=== PATIENT | female | born 1940 | race Caucasian/White ===

== ENCOUNTER 2016-09-11 01:35 | Emergency (ER) | payer MEDICARE, BC ==
[~2016-09-11] VITALS: Ht 172.7 cm; Wt 90.0 kg
[~2016-09-11 01:35] MED LIST: ALIG4CAP; ARIM1TAB PO; CALC-179 PO; DORZSOL EACH EYE; FIORIC PO; FLUT50I; LANS30 PO; LATA.005%O EACH EYE; LOVA1TAB47 PO; MECL-62 PO; MEGA RED; METO25 PO; SOY50CAP PO; TRAM50 PO
[2016-09-11 01:43] VITALS: BP 146/81; PULSE 67; RESP 16; TEMP 97.8; O2SAT 99
[2016-09-11] MEDS ORDERED: [UNRECOGNIZED DRUG - CODE] (02:01)
[2016-09-11] MEDS ORDERED: CALC500T35 (02:01)
[2016-09-11] MEDS ORDERED: LATA0.002 EACH EYE (02:01)
[2016-09-11] MEDS ORDERED: BUTA1CAP PO (02:01)
[2016-09-11] MEDS ORDERED: LOVA20TA PO (02:01)
[2016-09-11] MEDS ORDERED: DORZ2SOL15 EACH EYE (02:01)
[2016-09-11] MEDS ORDERED: LANS30CA PO (02:01)
[2016-09-11] MEDS ORDERED: MECL-62 PO (02:01)
[2016-09-11] MEDS ORDERED: ANAS1TAB PO (02:01)
[2016-09-11] MEDS ORDERED: ALIG4CAP PO (02:02)
[2016-09-11] MEDS ORDERED: TRAM50TA PO (02:08)
[2016-09-11] MEDS ORDERED: PRED50 PO (02:44)
--- NOTE | 2016-09-11 02:46 | PD ---
HPI Chief Complaint: Musculoskeletal Complaint Time Seen by Provider: 02:35 Travel History International Travel<30 days: No Contact w/Intl Traveler<30days: No Traveled to known affect area: No History of Present Illness HPI The patient is a 76-year-old female that was getting ready for a trip to [place] and walking around more than she usually does and several hours ago, around 11 PM tonight she felt pain and some perceived swelling around Lisfranc' s joint and, to much lesser extent the ankle joint. It is very painful for her to bear weight on this left foot. She wants to drive to [place] with her in the next 2 days and wants to be better by then. PFSH Past Medical History Hx Anticoagulant Therapy: No Arthritis: Yes Autoimmune Disease: No Blood Disorders: No Cancer: Yes (Colon 1979) Cardiovascular Problems: Yes (htn on meds) High Cholesterol: Yes Chemotherapy: No Diminished Hearing: No Endocrine: No Gastrointestinal Disorders: Yes (Luci under care of Dr. Payne for GI issues) GERD: Yes Genitourinary: No Hypertension: Yes (HAS BEEN OFF MEDS FOR 6-7 MONTHS) Immune Disorder: No Implanted Vascular Access Dvce: No Neurologic: Yes Psychiatric: No Reproductive: No Respiratory: No Radiation Therapy: No ?: Not Menopausal: Yes Past Surgical History Abdominal Surgery: Yes (COLON SURGER FOR CA) Appendectomy: Yes Eye Surgery: Yes (CATARACTS) Genitourinary Surgery: Yes (Prolasped bladder) Neurologic Surgery: Yes (CEREBRAL ANEURISM 1999) Tonsillectomy: Yes Other Surgery: Yes (BLADDER SURGERY, NASAL POLYPS, VERICOSE VEIN SURG) Social History Alcohol Use: No Tobacco Use: No Substance Use: No Allergies-Medications (Allergen,Severity, Reaction): Coded Allergies: Codeine (Verified Allergy, Severe, 09/11/16) Meperidine (Verified Allergy, Severe, 09/11/16) Morphine (Verified Allergy, Severe, 09/11/16) Sulfa (Verified Allergy, Severe, 09/11/16) Demerol (Verified Allergy, Mild, 09/11/16) Zantac (Verified Adverse Reaction, Unknown, loose stools, 09/11/16) Reported Meds & Prescriptions Reported Meds & Active Scripts Active Reported Tramadol (Tramadol HCl) 50 Mg Tab 50 Mg PO Q6H PRN Align (Lactobacillus Rhamnosus (GG)) 4 Mg Cap 4 Mg PO DAILY Fioricet (Mxpplmpmqy-Azymnuavcmuex-Bsyqrhhs) 50-300-40 Mg Cap 1 Cap PO Q4H PRN Meclizine (Meclizine HCl) 25 Mg Tab 25 Mg PO DIRECTED PRN Dorzolamide-Timolol Opth Drops 22.3-6.8 Mg/Ml Soln 1 Drop EACH EYE BID Latanoprost Opth Drops (Latanoprost) 0.005% Drops 1 Drop EACH EYE HS Refrigerate until opened. Anastrozole 1 Mg Tab 1 Mg PO DAILY Lansoprazole 30 Mg Capdr 30 Mg PO DAILY Calcium (Oyster Shell) 500 Mg Tab Lovastatin 20 Mg Tab 20 Mg PO DAILY Soy Isoflavones (Soy Isoflavone) 40 Mg Tab Review of Systems Except as stated in HPI: all other systems reviewed are Neg Physical Exam Narrative GENERAL: Well-nourished, well-developed patient in slight apparent distress with her left foot pain. SKIN: Focused skin assessment warm/dry. HEAD: Normocephalic. EYES: No scleral icterus. No injection or drainage. NECK: Supple, trachea midline. No JVD or lymphadenopathy. CARDIOVASCULAR: Regular rate and rhythm without murmurs, gallops, or rubs. RESPIRATORY: Breath sounds equal bilaterally. No accessory muscle use. GASTROINTESTINAL: Abdomen soft, non-tender, nondistended. MUSCULOSKELETAL: No cyanosis, or edema. There is possibly some slight swelling over the left foot as compared to the right but there certainly is no pitting edema. She is tender all the way around Lisfranc's joint. She is not particularly tender in the plantar fascial area except for Lisfranc's joint. She does have some minimal tenderness around the left ankle joint. No erythema is seen. Movement of Lisfranc's joint completely reproduce the patient's pain. BACK: Nontender without obvious deformity. No CVA tenderness. Data Data Last Documented VS Vital Signs Date Time Temp Pulse Resp B/P Pulse Ox O2 Delivery O2 Flow Rate FiO2 09/11/16 01:43 97.8 67 16 146/81 99 MDM Medical Decision Making Medical Screen Exam Complete: Yes Emergency Medical Condition: Yes Medical Record Reviewed: Yes Differential Diagnosis Joint swelling/pain, arthritis pain, overuse joint pain Narrative Course The patient apparently has joint pain/swelling in Lisfranc's joint from overuse. Plan: The patient be put on prednisone over an 8 day tapered course. She should elevate her left foot above her heart and stay off her left foot as much as possible. Diagnosis Primary Impression: Swelling of foot joint Additional Impression: Overuse syndrome of foot Additional Instructions: As we discussed, the prednisone is taken one tablet twice daily for 4 days followed by one tablet once daily for 4 days. Elevate your left foot above your heart and stay off the foot as much as possible. Avoid weightbearing. Use your cane if necessary. Med/Other Pt SpecificInfo: Prescription(s) given Scripts Prednisone 50 Mg Tab50 Mg PO BID #12 TAB Ref 0 Prov:Teddy Ayala MD 09/11/16 Disposition: 01 DISCHARGE HOME Condition: Stable Teddy Ayala MD Sep 11, 2016 02:46
[2016-09-11] MEDS ORDERED: predniSONE 20 MG TAB PO ONE (03:00)
== END 2016-09-11 03:20 | disposition home or self-care (01) ==
LOC: PHED 01:35
DX: M70.872 Other soft tissue disorders related to use, overuse and pressure, left ankle and foot (principal); M25.572 Pain in left ankle and joints of left foot; Y93.01 Activity, walking, marching and hiking; I10 Essential (primary) hypertension
CPT/HCPCS: 99283; J7512

== ENCOUNTER 2017-11-12 14:08 | Emergency (ER) | payer MEDICARE, BC ==
[~2017-11-12] VITALS: Ht 172.7 cm; Wt 90.3 kg
[~2017-11-12 14:08] MED LIST changes: -ALIG4CAP; +ALIG4CAP PO; +ANAS1TAB PO; -ARIM1TAB PO; +BUTA1CAP PO; -CALC-179 PO; +CALC12502 PO; +DORZ2SOL15 EACH EYE; -DORZSOL EACH EYE; -FIORIC PO; -FLUT50I; -LANS30 PO; +LANS30CA PO; -LATA.005%O EACH EYE; +LATA0.002 EACH EYE; -LOVA1TAB47 PO; +LOVA20TA PO; -MEGA RED; -METO25 PO; +PRED50 PO; -SOY50CAP PO; -TRAM50 PO; +TRAM50TA PO; +[UNRECOGNIZED DRUG - CODE]
[2017-11-12 14:11] VITALS: BP 149/62; PULSE 71; RESP 16; TEMP 99.1; O2SAT 97
[2017-11-12] MEDS ORDERED: mega red PO (14:27)
[2017-11-12] MEDS ORDERED: ICAPCAP PO (14:27)
[2017-11-12] MEDS ORDERED: URIB118C PO (14:27)
[2017-11-12] MEDS ORDERED: SOYCAP PO (14:27)
[2017-11-12] MEDS ORDERED: NITR100C4 PO (14:27)
--- NOTE | 2017-11-12 15:15 | RADRPT ---
EXAM DATE: 11/12/2017 3:02 PM EDT AGE/SEX: 77 years / Female INDICATIONS: Right knee pain post gardening CLINICAL DATA: This is the patient's initial encounter. Patient reports that signs and symptoms have been present for 3 days and indicates a pain score of 5/10. MEDICAL/SURGICAL HISTORY: None. None. COMPARISON: No prior exams available for comparison. FINDINGS: There are minimal degenerative changes in the medial compartment. There is no evidence of joint effus ion. I was anatomic. Fracture is not appreciated. Moderate vascular calcic locations are noted. CONCLUSION: Mild degenerative changes otherwise negative Electronically signed by: Sen Wayne MD 11/12/2017 3:14 PM EDT
[2017-11-12] MEDS ORDERED: TRAM50 PO (15:41)
--- NOTE | 2017-11-12 15:45 | PD ---
HPI Chief Complaint: Musculoskeletal Complaint Time Seen by Provider: 14:33 Travel History International Travel<30 days: No Contact w/Intl Traveler<30days: No Traveled to known affect area: No History of Present Illness HPI 77-year-old female with right knee pain 1 day. She reports she developed sharp pain in the right knee when she attempted to stand up from a kneeling position. She now has pain with any flexion of the knee. Pain is localized to the anterior medial aspect. Pain is nonradiating. Symptom severity is moderate. Alleviated with rest and elevation. Denies altered sensation or weakness of the extremity. PFSH Past Medical History Hx Anticoagulant Therapy: No Arthritis: Yes Autoimmune Disease: No Blood Disorders: No Cancer: Yes (Colon 1979) Cardiovascular Problems: Yes (htn on meds) High Cholesterol: Yes Chemotherapy: No Diminished Hearing: No Endocrine: No Gastrointestinal Disorders: Yes (Luci under care of Dr. Payne for GI issues) GERD: Yes Genitourinary: No Hypertension: Yes (HAS BEEN OFF MEDS FOR 6-7 MONTHS) Immune Disorder: No Implanted Vascular Access Dvce: No Neurologic: Yes Psychiatric: No Reproductive: No Respiratory: No Radiation Therapy: No Tetanus Vaccination: < 5 Years Influenza Vaccination: Yes ?: Not Menopausal: Yes Past Surgical History Abdominal Surgery: Yes (COLON SURGER FOR CA) Appendectomy: Yes Eye Surgery: Yes (CATARACTS) Genitourinary Surgery: Yes (Prolasped bladder) Neurologic Surgery: Yes (CEREBRAL ANEURISM 1999) Tonsillectomy: Yes Other Surgery: Yes (BLADDER SURGERY, NASAL POLYPS, VERICOSE VEIN SURG) Social History Alcohol Use: No Tobacco Use: No Substance Use: No Allergies-Medications (Allergen,Severity, Reaction): Coded Allergies: Sulfa (Sulfonamide Antibiotics) (Unverified Allergy, Severe, 01/02/17) codeine (Unverified Allergy, Severe, 01/02/17) meperidine (Unverified Allergy, Severe, 01/02/17) morphine (Unverified Allergy, Severe, 01/02/17) ranitidine (Unverified Adverse Reaction, Unknown, loose stools, 01/02/17) Reported Meds & Prescriptions Reported Meds & Active Scripts Active Reported Nitrofurantoin Monohydrate Macrocrystals (Nitrofurantoin Monoh/Nitrofur Macro) 100 Mg Cap 100 Mg PO BID PRN Uribel (Itafkzhpewf-Ssxrv-Kvqvjjrus Blue) 1 Cap 118 Mg PO BID [robyn red] 300 Mg PO DAILY Icaps (Multiple Vitamins W/ Minerals) 1 Cap 1 Cap PO DAILY Soy Isoflavones (Soy Isoflavone) 100 Mg Cap 80 Mg PO DAILY Align (Lactobacillus Rhamnosus (GG)) 4 Mg Cap 4 Mg PO DAILY Fioricet (Uoqdwwwvuo-Cnkdzgjaxiaht-Qsonfhym) 50-300-40 Mg Cap 1 Cap PO Q4H PRN Meclizine (Meclizine HCl) 25 Mg Tab 25 Mg PO DIRECTED PRN Dorzolamide-Timolol Opth Drops 22.3-6.8 Mg/Ml Soln 1 Drop EACH EYE BID Latanoprost Opth Drops (Latanoprost) 0.005% Drops 1 Drop EACH EYE HS Refrigerate until opened. Anastrozole 1 Mg Tab 1 Mg PO DAILY Lansoprazole 30 Mg Capdr 30 Mg PO BID Calcium (Oyster Shell) 500 Mg Tab 600 Mg PO BID Lovastatin 20 Mg Tab 40 Mg PO HS Review of Systems Except as stated in HPI: all other systems reviewed are Neg General / Constitutional: No: Fever Eyes: No: Visual changes HENT: No: Headaches Cardiovascular: No: Chest Pain or Discomfort Respiratory: No: Shortness of Breath Gastrointestinal: No: Abdominal Pain Genitourinary: No: Dysuria Physical Exam Narrative GENERAL: Alert and well-appearing 77-year-old female SKIN: Warm and dry. HEAD: Normocephalic. EYES: No injection or drainage. NECK: Supple CARDIOVASCULAR: Regular rate and rhythm RESPIRATORY: Breath sounds equal bilaterally. No accessory muscle use. GASTROINTESTINAL: Abdomen soft, non-tender, nondistended. MUSCULOSKELETAL: No cyanosis, or edema. Right lower extremely: +ttp anterior medial aspect of the knee. Joint is stable. No laxity. Palpable distal pulses. Sensation intact. Cap refill intact Data Data Last Documented VS Vital Signs Date Time Temp Pulse Resp B/P (MAP) Pulse Ox O2 Delivery O2 Flow Rate FiO2 11/12/17 14:11 99.1 71 16 149/62 (91) 97 Orders Orders Knee, Complete (4vws) (11/12/17 ) ^ Knee Immobilizer (11/12/17 15:23) MDM Medical Decision Making Medical Screen Exam Complete: Yes Emergency Medical Condition: Yes Differential Diagnosis Sprain/strain, meniscal injury, fracture Narrative Course 77-year-old female with right knee pain is 1 day. Extremities neurovascularly intact. X-rays negative for fracture. Knee immobilizer placed. Patient is to follow-up with her orthopedist Dr. Avila this week. She reports she can take tramadol for pain. She will be given a few day supply. Diagnosis Primary Impression: Knee pain Qualified Codes: M25.561 - Pain in right knee Referrals: Orthopedist Primary Care Physician Additional Instructions: Knee immobilizer as directed. Pain medication as directed Call to schedule a follow-up appointment with Dr. Avila. Scripts Tramadol (Ultram) 50 Mg Tab 50 MG PO Q6H Y for PAIN, #10 TAB 0 Refills Prov: Pilar Mcgee 11/12/17 Disposition: 01 DISCHARGE HOME Condition: Stable Pilar Mcgee Nov 12, 2017 15:45
== END 2017-11-12 16:00 | disposition home or self-care (01) ==
LOC: PHEFT 14:08
DX: M25.561 Pain in right knee (principal); M19.90 Unspecified osteoarthritis, unspecified site; K21.9 Gastro-esophageal reflux disease without esophagitis; I10 Essential (primary) hypertension; Z88.2 Allergy status to sulfonamides; Z88.5 Allergy status to narcotic agent
CPT/HCPCS: 73564; 99283

== ENCOUNTER 2018-05-04 08:35 | Inpatient (IN) ==
[2018-05-04 09:32] LABS: Baso % (Auto) 0.6 % (0.0-2.0); Eos # (Auto) 0.1 th/mm3 (0.0-0.4); Eos % (Auto) 1.5 % (0.0-4.0); Hematocrit 44.8 % (35.0-46.0); Hemoglobin 15.1 gm/dL (11.6-15.3); Lymph # (Auto) 0.9 th/mm3 (1.0-4.8); Lymph % (Auto) 13.2 % (9.0-44.0); Mean Corpuscular HGB Conc 33.8 % (32.0-36.0); Mean Corpuscular Volume 91.6 fL (80.0-100.0); Mean Platelet Volume 10.1 fL (7.0-11.0); Mono # (Auto) 0.4 th/mm3 (0.0-0.9); Mono % (Auto) 5.7 % (0.0-8.0); Neut # (Auto) 5.6 th/mm3 (1.8-7.7); Platelet Count 164 th/mm3 (150-450); Red Blood Count 4.89 mil/mm3 (4.00-5.30); Red Cell Distribution Width 12.8 % (11.6-17.2)
--- NOTE | 2018-05-04 09:35 | ED ---
HPI General Chief complaint: Fall Stated complaint: Fall Time Seen by Provider: 05/04/18 08:45 Source: patient Mode of arrival: ambulatory Limitations: no limitations History of Present Illness HPI narrative: 77-year-old female who presents to the emergency department having had a mechanical fall when she was at a store. She tripped and landed on her right hip. She reports moderate severity pain in the right hip, constant , with no associated numbness or weakness. She did not hit her head. She is not on any blood thinners. Related Data Home Medications Medication Instructions Recorded Confirmed Bifidobacterium infantis [Align] 4 mg PO DAILY 05/04/18 05/04/18 anastrozole 1 mg PO DAILY 05/04/18 05/04/18 dorzolamide 1 drp OPHTHALMIC (EYE) TID 05/04/18 05/04/18 fluticasone 1 spray INTRANASAL DAILY 05/04/18 05/04/18 lansoprazole 30 mg PO DAILY 05/04/18 05/04/18 latanoprost 1 drp OPHTHALMIC (EYE) QPM 05/04/18 05/04/18 lovastatin 20 mg PO DAILY 05/04/18 05/04/18 meclizine 25 mg PO DAILY PRN 05/04/18 05/04/18 methalex-hector-s.edgp-pjvww-jvm 1 tab PO QID 05/04/18 05/04/18 [Uribel] metoprolol tartrate 12.5 mg PO BID 05/04/18 05/04/18 nitrofurantoin monohyd/m-cryst 100 mg PO BID 05/04/18 05/04/18 Allergies Allergy/AdvReac Type Severity Reaction Status Date / Time codeine Allergy Severe Vomiting Verified 05/04/18 09:05 morphine Allergy Severe Vomiting Verified 05/04/18 09:05 Sulfa (Sulfonamide Allergy Severe Diarrhea Verified 05/04/18 09:05 Antibiotics) meperidine [From Demerol] Allergy Nausea Verified 05/04/18 09:05 ranitidine AdvReac Unknown loose Verified 05/04/18 09:05 stools Review of Systems ROS: all other systems reviewed are negative PMFSH Medical History Medical History Bladder cancer (Acute) Breast cancer (Acute) Cataract (Acute) Colon cancer (Acute) Surgical History Surgical History History of appendectomy (Acute) Social History Social History Substance History: No History of Abuse Smoking Status: Never smoker How Often Do You Have a Drink Containing Alcohol: Never Recent Travel in [facility] within the Last 8 Weeks: No Recent Out of Country Travel within the Last 8 Weeks: Yes Immunization History Tetanus Immunization: <5 Years Exam Narrative Exam Narrative: GENERAL:Well appearing, no acute distress SKIN: Focused skin assessment warm and dry. HEAD: Atraumatic. Normocephalic. EYES: Pupils equal and round. No injection or drainage. ENT: Moist mucous membranes NECK: Trachea midline. CARDIOVASCULAR: Regular rate and rhythm. No murmur appreciated. 2+ right DP pulse with normal capillary refill. RESPIRATORY: Clear to auscultation. Breath sounds equal bilaterally. GASTROINTESTINAL: Abdomen soft, non-tender, nondistended. MUSCULOSKELETAL: Tender to palpation over the right pubic ramus, guarding with attempts at flexion of the right hip. NEUROLOGICAL: Awake and alert. No obvious cranial nerve deficits. Mild dysarthria. PSYCHIATRIC: Appropriate mood and affect; insight and judgment normal. Course Initial Documented Vital Signs Temperature 98.6 F 05/04/18 08:39 Pulse Rate 67 05/04/18 08:39 Respiratory Rate 16 05/04/18 08:39 Blood Pressure 191/92 H 05/04/18 08:39 Pulse Oximetry 97 05/04/18 08:39 Last Documented Vital Signs Temperature 98.6 F 05/04/18 08:39 Pulse Rate 67 05/04/18 08:39 Respiratory Rate 16 05/04/18 08:39 Blood Pressure 191/92 H 05/04/18 08:39 Pulse Oximetry 97 05/04/18 10:36 Medical Decision Making [facility] Narrative Medical decision making narrative: This is a 77-year-old female who presents to the emergency department having had a fall landing on her right hip. She has a normal neurovascular exam. X-ray demonstrates a femoral neck fracture in. Case was discussed with orthopedics who requested a CT of the hip and will likely do surgery tomorrow. Patient will be admitted to Dr. Sahu. Medical Screen Exam Complete: Yes Emergency Medical Condition: Yes Lab Data Result diagrams: 05/04/18 09:07 05/04/18 09:07 Lab Results 05/04/18 05/04/18 05/04/18 Range/Units 09:07 09:07 10:40 WBC 7.0 (4.0-11.0) th/mm3 RBC 4.89 (4.00-5.30) mil/mm3 Hgb 15.1 (11.6-15.3) gm/dL Hct 44.8 (35.0-46.0) % MCV 91.6 (80.0-100.0) fL MCH 31.0 (27.0-34.0) pg MCHC 33.8 (32.0-36.0) % RDW 12.8 (11.6-17.2) % Plt Count 164 (150-450) th/mm3 MPV 10.1 (7.0-11.0) fL Neut % (Auto) 79.0 H (16.0-70.0) % Lymph % (Auto) 13.2 (9.0-44.0) % Todd % (Auto) 5.7 (0.0-8.0) % Eos % (Auto) 1.5 (0.0-4.0) % Baso % (Auto) 0.6 (0.0-2.0) % Neut # (Auto) 5.6 (1.8-7.7) th/mm3 Lymph # (Auto) 0.9 L (1.0-4.8) th/mm3 Todd # (Auto) 0.4 (0.0-0.9) th/mm3 Eos # (Auto) 0.1 (0.0-0.4) th/mm3 Baso # (Auto) 0.0 (0.0-0.2) th/mm3 WBC Differential . Differential Comment Auto diff final Sodium 141 (136-145) meq/L Potassium 4.2 (3.5-5.1) meq/L Chloride 107 (98-107) meq/L Carbon Dioxide 27.6 (21.0-32.0) meq/L Anion Gap 6 (5-15) meq/L BUN 14 (7-18) mg/dL Creatinine 0.93 (0.50-1.00) mg/dL Estimated GFR 59 L (>89) mL/min Random Glucose 96 (74-106) mg/dL Calcium 9.0 (8.5-10.1) mg/dL Total Bilirubin 0.7 (0.2-1.0) mg/dL AST 33 (15-37) U/L ALT 32 (10-53) U/L Alkaline Phosphatase 114 (45-117) U/L Total Protein 7.5 (6.4-8.2) g/dL Albumin 4.2 (3.4-5.0) g/dL Urine Color Straw (Yellw/Straw) Urine Clarity Clear (Clear) Urine pH 7.0 (5.0-8.5) Ur Specific Crowder 1.006 (1.002-1.035) Urine Protein Negative (Neg-Trace) mg/dL Urine Glucose (UA) Negative (Negative) mg/dL Urine Ketones Negative (Negative) mg/dL Urine Occult Blood Negative (Negative) Urine Nitrate Negative (Negative) Urine Bilirubin Negative (Negative) Urine Urobilinogen Less than 2 (Less than 2) mg/dL Ur Leukocyte Esterase Trace H (Negative) Urine RBC 1 (0-3) /hpf Urine WBC 4 (0-5) /hpf Ur Squamous Epith Cells <1 (0-5) /hpf Urine Bacteria Rare H (None) /hpf Urine Mucus Few H (Occasional) /lpf Ur Microscopic Review Not Reportable Imaging Data Radiologist's impression: Hip X-Ray 05/04/18 09:01 CONCLUSION: Femoral neck fracture, nondisplaced. Pelvis X-Ray 05/04/18 09:01 CONCLUSION: Nondisplaced fracture of the right femoral neck. Discharge Plan Discharge Disposition Patient Disposition: ED Admit(ED Internal Use Only) Discharge Condition Condition: Stable Discharge Order Discharge Orders: ED Use Only Admit Order (Routine); Ordered 05/04/18 Ordered By: Nita Sin Discharge Details Diagnosis: Femoral neck fracture Physicians Team ED Provider: Nita Sin Primary Care Provider: Hillary Lu Attending Provider: Kiara Sahu Other Providers: Isacc Hightower Status ED Status: Admitted Patient
[2018-05-04 09:37] LABS: Alanine Aminotransferase 32 U/L (10-53)
[2018-05-04 09:40] LABS: Alkaline Phosphatase 114 U/L (45-117); Total Protein 7.5 g/dL (6.4-8.2)
[2018-05-04 09:45] LABS: Albumin 4.2 g/dL (3.4-5.0); Anion Gap 6 meq/L (5-15); Aspartate Aminotransferase 33 U/L (15-37); Blood Urea Nitrogen 14 mg/dL (7-18); Carbon Dioxide 27.6 meq/L (21.0-32.0); Chloride 107 meq/L (98-107); Glomerular Filtration Rate 59 mL/min (>89); Glucose,Random 96 mg/dL (74-106); Sodium 141 meq/L (136-145)
[2018-05-04 09:46] LABS: Potassium 4.2 meq/L (3.5-5.1)
--- NOTE | 2018-05-04 09:50 | XR ---
EXAM DATE: 05/04/2018 9:44 AM EST AGE/SEX: 77 years / Female INDICATIONS: Trauma. Fall. Possible femoral head fracture. CLINICAL DATA: This is the patient's initial encounter. Patient reports that signs and symptoms have been present for 1 day and indicates a pain score of 8/10. MEDICAL/SURGICAL HISTORY: None. None. COMPARISON: [facility] – [place], PELVIS AP 1V, 05/04/2018. . FINDINGS: Multiple views of the right hip demonstrate a nondisplaced femoral neck fracture. The bones are femi l in mineralization. Chain suture material overlies the midline pelvis. Radiopaque material overlies the region of the pub ic symphysis. CONCLUSION: Femoral neck fracture, nondisplaced. Electronically signed by: Mayte Andres MD Board Certified Radiologist 05/04/2018 9:49 AM [facility]
--- NOTE | 2018-05-04 09:51 | XR ---
EXAM DATE: 05/04/2018 9:45 AM EST AGE/SEX: 77 years / Female INDICATIONS: Trauma. Fall. Possible right femoral head fracture. CLINICAL DATA: This is the patient's initial encounter. Patient reports that signs and symptoms have been present for 1 day and indicates a pain score of 8/10. MEDICAL/SURGICAL HISTORY: None. None. COMPARISON: No prior exams available for comparison. FINDINGS: AP view of the pelvis demonstrates a nondisplaced fracture of the right femoral neck. Remainder of th e osseous structures are intact with degenerative changes within the lumbar spine. Bones are normal i n mineralization. Soft tissues demonstrate change suture material overlying the midline pelvis and radiopaque material overlying the region of the pubic symphysis. CONCLUSION: Nondisplaced fracture of the right femoral neck. Electronically signed by: Mayte Andres MD Board Certified Radiologist 05/04/2018 9:49 AM M[facility]
[2018-05-04] MEDS ORDERED: Bisacodyl 10 MG Supp RECTAL PRN (10:30)
[2018-05-04] MEDS ORDERED: Acetaminophen 325 MG Tablet PO PRN (10:30)
[2018-05-04] MEDS ORDERED: Morphine Inj 4 MG/ML Vial IV.PUSH PRN (10:35)
[2018-05-04] MEDS: Sod Chloride 0.9% Inj 1,000 ML IV.CONT SCH (10:53)
[2018-05-04 10:59] LABS: Bacteria,Urine Rare /hpf; Bilirubin,Urine Negative (Negative); Clarity,Urine Clear (Clear); Color,Urine Straw (Yellw/Straw); Glucose,Urine (UA) Negative (Negative); Leukocyte Esterase,Urine Trace (Negative); Mucus,Urine Few /lpf (Occasional); Nitrite,Urine Negative (Negative); Specific Gravity,Urine 1.006 (1.002-1.035); Squamous Epithelial Cell,Urine <1 /hpf (0-5)
--- NOTE | 2018-05-04 11:47 | CT ---
EXAM DATE: 05/04/2018 11:30 AM EST AGE/SEX: 77 years / Female INDICATIONS: Right hip pain status post fall. CLINICAL DATA: This is the patient's initial encounter. Patient reports that signs and symptoms have been present for 1 day and indicates a pain score of 6/10. MEDICAL/SURGICAL HISTORY: Carcinoma, bladder. Carcinoma, breast. Carcinoma, colon. Appendectomy. RADIATION DOSE: 23.72 CTDI (mGy) COMPARISON: [facility], MR PELVIS W AND W/O CONTRAST, 01/17/2018. [facility], HIP RIGHT 2V, 05/04/2018. . TECHNIQUE: Multiple contiguous axial images were acquired using a multirow detector CT scanner witho ut contrast. Multiplanar reconstruction was performed in the sagittal and coronal planes. Using aut omated exposure control and adjustment of the mA and/or kV according to patient size, radiation dose was kept as low as reasonably achievable to obtain optimal diagnostic quality images. DICOM format i mage data is available electronically for review and comparison. FINDINGS: Bones: There is a comminuted fracture of the right femoral neck with the femoral head maintaining no rmal alignment with the acetabulum and the proximal femur somewhat displaced anteriorly. The remainde r of the imaged osseous structures are intact. Joints: Severe degenerative changes of the facet joints. Soft Tissues: Unremarkable. Other: Linear mesh identified within the region of the urethra CONCLUSION: 1. Comminuted mildly displaced fracture of the right femoral neck. Electronically signed by: Mayte Andres MD Board Certified Radiologist 05/04/2018 11:45 AM E
--- NOTE | 2018-05-04 16:27 | P.HPIM ---
History of Present Illness Primary Care Physician: Hillary Lu MD Chief Complaint: fall History of Present Illness: The patient is a very pleasant 77-year-old female with carmita h/o colon/ breast CA, who presents to the emergency department having had a mechanical fall when she was at a store. She tripped and landed on her right hip. She reports moderate severity pain in the right hip, constant, with no associated numbness or weakness. She did not hit her head. She is not on any blood thinners. 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 She also has multiple meds allergies. Says however she was deemed healthy by all her doctors. Says she had a recent cardiac stress test and was normal. No other complaints. Deneis cp, sob, n/v/d/c. No headache change in vision, focal deficit. No urinary complaints. No n/v/d/c. Inpatient Certification: I certify that the inpatient services were ordered in accordance with Medicare regulations governing the order. This includes certification that hospital inpatient services are reasonable and necessary and in the case of services not specified as inpatient-only under 42 CFR 419.22(n), that they are appropriately provided as inpatient services in accordance to with the 2-midnight benchmark under 43 CFR 412.3(e) Estimated Total Length of Stay (Days): 3 Plans for Post Hospital Care: Not yet determined Review of Systems All other systems reviewed negative except as stated in HPI PMFSH - History History Provided By: Patient - Medical History Medical History: Medical History (Last Reviewed 05/04/18 @ 18:09 by Kiara Sahu MD) Bladder cancer Breast cancer Cataract Colon cancer - Surgical History Surgical History: Surgical History (Last Reviewed 05/04/18 @ 18:09 by Kiara Sahu MD) History of appendectomy - Family History Family History: Family History (Last Updated 05/04/18 @ 18:10 by Kiara Sahu MD) Father Family history of colon cancer Family history of cancer Mother Family history of cancer Family history of bone cancer Sister Family history of cancer - Social History I have reviewed the patient's Social History: Yes - Tobacco History Smoking Status: Never smoker - Alcohol History How Often Do You Have a Drink Containing Alcohol: Never - Substance Use History Substance History: No History of Abuse - Travel History Recent Travel in the [place] Within the Last 8 Weeks: No Recent Travel Out of the Country Within the Last 8 Weeks: Yes - Immunization History Tetanus Immunization: <5 Years Medications and Allergies Active Medications: Active Medications Acetaminophen (Tylenol) 650 mg PO Q4H PRN PRN Reason: Temp > 100.4 Al Hydroxide/Mg Hydroxide (Milk Of Magnesia Liq) 30 ml PO Q12H PRN PRN Reason: Mild Constipation Bisacodyl (Dulcolax Supp) 10 mg RECTAL DAILY PRN PRN Reason: SEVERE CONSITIPATION Dorzolamide HCl (Trusopt 2% Opth Drops) 1 drop EACH EYE TID [facility] Fluticasone Propionate (Flonase Nasal [place]) 1 spray EACH NARE DAILY [facility] Sodium Chloride (Ns Inj) 1,000 mls @ 70 mls/hr IV.CONT .[id number] [facility] Last Admin: 05/04/18 10:53 Dose: 70 mls/hr Lactulose (Lactulose Liq) 30 ml PO DAILY PRN PRN Reason: SEVERE CONSITIPATION Latanoprost (Xalatan 0.005% Opth Drops) 1 drop EACH EYE QPM [facility] Meclizine HCl (Antivert) 25 mg PO DAILY PRN PRN Reason: SEE LABEL COMMENTS Metoprolol Tartrate (Lopressor) 12.5 mg PO BID [facility] Nitrofurantoin Macrocrystals (Macrobid) 100 mg PO BID [facility] Ondansetron HCl (Zofran Inj) 4 mg IV.PUSH Q6H PRN PRN Reason: NAUSEA OR VOMITING Pantoprazole Sodium (Protonix) 40 mg PO DAILY [facility] Pt Own Med:(Methen-M .Blue-S.Phos-Phsal- Hyo [Uribel] 0 each PO QID [facility] Pravastatin Sodium (Pravachol) 20 mg PO DAILY [facility] Senna/Docusate Sodium (Ruby-Colace) 1 tab PO BID [facility] Sennosides (Senokot) 17.2 mg PO Q12H PRN PRN Reason: Moderate Constipation Sodium Chloride (Ns Flush) 2 ml IV.FLUSH BID [facility] Sodium Chloride (Ns Flush) 2 ml IV.FLUSH PRN PRN PRN Reason: FLUSH AFTER USING IV ACCESS Tramadol HCl (Ultram) 50 mg PO TID PRN PRN Reason: PAIN 2-10 Last Admin: 05/04/18 14:08 Dose: 50 mg Allergies Allergy/AdvReac Type Severity Reaction Status Date / Time codeine Allergy Severe Vomiting Verified 05/04/18 09:05 morphine Allergy Severe Vomiting Verified 05/04/18 09:05 Sulfa (Sulfonamide Allergy Severe Diarrhea Verified 05/04/18 09:05 Antibiotics) meperidine [From Demerol] Allergy Nausea Verified 05/04/18 09:05 ranitidine AdvReac Unknown loose Verified 05/04/18 09:05 stools Home Medications Medication Instructions Recorded Confirmed Type Bifidobacterium infantis [Align] 4 mg PO DAILY 05/04/18 05/04/18 History anastrozole 1 mg PO DAILY 05/04/18 05/04/18 History dorzolamide 1 drp OPHTHALMIC (EYE) TID 05/04/18 05/04/18 History fluticasone 1 spray INTRANASAL DAILY 05/04/18 05/04/18 History lansoprazole 30 mg PO DAILY 05/04/18 05/04/18 History latanoprost 1 drp OPHTHALMIC (EYE) QPM 05/04/18 05/04/18 History lovastatin 20 mg PO DAILY 05/04/18 05/04/18 History meclizine 25 mg PO DAILY PRN 05/04/18 05/04/18 History [id number] 1 tab PO QID 05/04/18 05/04/18 History [Uribel] metoprolol tartrate 12.5 mg PO BID 05/04/18 05/04/18 History nitrofurantoin monohyd/m-cryst 100 mg PO BID 05/04/18 05/04/18 History Exam Vital signs: Vital Signs 05/04/18 08:39 05/04/18 10:36 05/04/18 15:08 Temperature 98.6 F Pulse Rate 67 74 Respiratory Rate 16 16 Blood Pressure 191/92 H 160/69 H Pulse Oximetry 97 97 96 Intake & Output 05/03/18 05/04/18 05/04/18 18:59 06:59 18:59 Intake Total 100 / 100 Balance 100 / 100 Weight 91.172 kg Intake: IV 100 / 100 Ofirmev Inj 1,000 mg In 100 ml 100 / 100 @ 400 mls/hr IV.SIG ONCE ONE Rx #:[id number] Narrative: GENERAL: Very pleasant 77 yo female, well nourished, well developed, appears in nad. SKIN: Warm and dry. HEAD: Atraumatic. Normocephalic. EYES: Pupils equal and round. No scleral icterus. No injection or drainage. ENT: No nasal bleeding or discharge. Mucous membranes pink and moist. NECK: Trachea midline. No JVD. CARDIOVASCULAR: Regular rate and rhythm. RESPIRATORY: No accessory muscle use. Clear to auscultation. Breath sounds equal bilaterally. GASTROINTESTINAL: Abdomen soft, non-tender, nondistended. Hepatic and splenic margins not palpable. MUSCULOSKELETAL: Extremities without clubbing, cyanosis, or edema. Right leg is externally rotated. NEUROLOGICAL: Awake and alert. No obvious cranial nerve deficits. Motor grossly within normal limits. Five out of 5 muscle strength in the arms and legs. Normal speech. PSYCHIATRIC: Appropriate mood and affect; insight and judgment normal. Results - Labs CBC & Chem 7: 05/04/18 09:07 05/04/18 09:07 Labs: Short CBC 05/04/18 Range/Units 09:07 WBC 7.0 (4.0-11.0) th/mm3 Hgb 15.1 (11.6-15.3) gm/dL Hct 44.8 (35.0-46.0) % Plt Count 164 (150-450) th/mm3 BMP 05/04/18 09:07 Sodium 141 Potassium 4.2 Chloride 107 Carbon Dioxide 27.6 BUN 14 Creatinine 0.93 Calcium 9.0 Liver Function 05/04/18 Range/Units 09:07 Total Bilirubin 0.7 (0.2-1.0) mg/dL AST 33 (15-37) U/L ALT 32 (10-53) U/L Alkaline Phosphatase 114 (45-117) U/L Albumin 4.2 (3.4-5.0) g/dL Urine 05/04/18 Range/Units 10:40 Urine Color Straw (Yellw/Straw) Urine Clarity Clear (Clear) Urine pH 7.0 (5.0-8.5) Ur Specific [place] 1.006 (1.002-1.035) Urine Protein Negative (Neg-Trace) mg/dL Urine Glucose (UA) Negative (Negative) mg/dL - Imaging Impressions Hip X-Ray 05/04/18 09:01 CONCLUSION: Femoral neck fracture, nondisplaced. Pelvis X-Ray 05/04/18 09:01 CONCLUSION: Nondisplaced fracture of the right femoral neck. Hip CT 05/04/18 10:34 CONCLUSION: 1. Comminuted mildly displaced fracture of the right femoral neck. Caprini VTE Risk Assessment Caprini VTE Risk Assessment: No/Low Risk (score <= 1) Caprini Risk Assessment Model: Point Value = 1 Point Value = 2 Point Value = 3 Point Value = 5 Age 41-60 Minor surgery BMI > 25 kg/m2 Swollen legs Varicose veins or History of unexplained or recurrent spontaneous Oral contraceptives or hormone replacement Sepsis (< 1 month) Serious lung disease, including pneumonia (< 1 month) Abnormal pulmonary function Acute myocardial infarction Congestive heart failure (< 1 month) History of inflammatory bowel disease Medical patient at bed rest Age 61-74 Arthroscopic surgery Major open surgery (> 45 min) Laparoscopic surgery (> 45 min) Malignancy Confined to bed (> 72 hours) Immobilizing plaster cast Central venous access Age >= 75 History of VTE Family history of VTE Factor V Leiden Prothrombin [id number] Lupus anticoagulant Anticardiolipin antibodies Elevated serum homocysteine Heparin-induced thrombocytopenia Other congenital or acquired thrombophilia Stroke (< 1 month) Elective arthroplasty Hip, pelvis, or leg fracture Acute spinal cord injury (< 1 month) Prophylaxis Regimen: Total Risk Factor Score Risk Level Prophylaxis Regimen 0-1 Low Early ambulation 2 Moderate Order ONE of the following: *Sequential Compression Device (SCD) *Heparin 5000 units SQ BID 3-4 Higher Order ONE of the following medications: *Heparin 5000 units SQ TID *Enoxaparin/Lovenox 40 mg SQ daily (WT < 150 kg, CrCl > 30 mL/min) *Enoxaparin/Lovenox 30 mg SQ daily (WT < 150 kg, CrCl > 10-29 mL/min) *Enoxaparin/Lovenox 30 mg SQ BID (WT < 150 kg, CrCl > 30 mL/min) AND/OR *Sequential Compression Device (SCD) 5 or more Highest Order ONE of the following medications: *Heparin 5000 units SQ TID (Preferred with Epidurals) *Enoxaparin/Lovenox 40 mg SQ daily (WT < 150 kg, CrCl > 30 mL/min) *Enoxaparin/Lovenox 30 mg SQ daily (WT < 150 kg, CrCl > 10-29 mL/min) *Enoxaparin/Lovenox 30 mg SQ BID (WT < 150 kg, CrCl > 30 mL/min) AND *Sequential Compression Device (SCD) Assessment and Plan - Plan Very pleasant 77 yo female s/p mechanical fall S/P mechanical fall with right femoral neck closed fracture X ray reviewed and findings discussed with the ED physician and patient Ortho consulted,. Dr Crowe. Plan for surgery 05/05/18. NPO after midnight Chronic medical problems appears stable at this time Restart home meds as appropriate DVT ppx scd/teds. 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
[2018-05-04] MEDS ORDERED: [UNRECOGNIZED DRUG - OTHER] PO SCH (18:00)
[2018-05-04] MEDS: Dorzolamide 2% Opth Drops 10 ML Bottle EACH EYE SCH (18:18)
[2018-05-04] MEDS: Latanoprost 0.005% Opth Drops 2.5 ML Bottle EACH EYE SCH (18:18)
[2018-05-04] MEDS: Metoprolol Tartrate 25 MG Tablet PO SCH (21:34)
[2018-05-04] MEDS: Nitrofurantoin Monohydrate-Macrocrystal 100 MG Capsule PO SCH (21:34)
[2018-05-04] MEDS: Senna/Docusate Sodium 8.6/50 MG Tablet PO SCH (21:34)
[2018-05-05] MEDS: Sod Chloride 0.9% Inj 1,000 ML IV.CONT SCH ×2 (01:41→15:06)
[2018-05-05] MEDS ORDERED: Chlorhexidine Gluconate 2% 1 Pack (2 Cloths) TOPICAL ONE (04:23)
[2018-05-05] MEDS ORDERED: Sodium Chlor 0.9% Inj 500 ML IV.SIG SCH (05:00)
[2018-05-05 06:40] LABS: Baso # (Auto) 0.1 th/mm3 (0.0-0.2); Baso % (Auto) 0.8 % (0.0-2.0); Eos # (Auto) 0.3 th/mm3 (0.0-0.4); Eos % (Auto) 2.8 % (0.0-4.0); Hematocrit 40.5 % (35.0-46.0); Lymph # (Auto) 0.9 th/mm3 (1.0-4.8); Lymph % (Auto) 9.6 % (9.0-44.0); Mean Corpuscular HGB Conc 34.6 % (32.0-36.0); Mean Corpuscular Hemoglobin 31.7 pg (27.0-34.0); Mean Corpuscular Volume 91.7 fL (80.0-100.0); Mean Platelet Volume 9.7 fL (7.0-11.0); Mono # (Auto) 0.6 th/mm3 (0.0-0.9); Mono % (Auto) 6.4 % (0.0-8.0); Neut # (Auto) 7.3 th/mm3 (1.8-7.7); Neut % (Auto) 80.4 % (16.0-70.0); Platelet Count 128 th/mm3 (150-450); Red Blood Count 4.42 mil/mm3 (4.00-5.30); Red Cell Distribution Width 12.6 % (11.6-17.2)
--- NOTE | 2018-05-05 06:53 | P.CONOP ---
[facility] Orthopedics Consult Note - [facility] Consult date: 05/05/18 Chief complaint: Femoral neck fracture Narrative: Sally is a 77-year-old female. She is normally very active. She walks every day for exercise. Pain. She describes a mechanical fall. She denies dizziness , syncope, or loss of consciousness. She complains of right hip pain. Pain is severe and intense with motion. Pain is improved with rest. She denies any pre -existing hip pain prior to her fall. She does have a history of colon cancer and breast cancer. She presented to the emergency room where x-rays revealed a partially displaced right femoral neck fracture. She is currently awake and alert on the orthopedic floor. She has been unable to stand or ambulate since her fall. Review of Systems Patient denies fevers, chills, weight loss, headache, visual changes, hearing loss, chest pain, palpitations, shortness of breath, nausea, vomiting, no urinary changes, diarrhea, bowel changes, neck pain, back pain, skin rashes, weakness of extremities, easy bleeding, enlarged lymph nodes, numbness of extremities, anxiety, or depression. She complains of right hip pain. She states that she has a history of AV malformations. Patient's social history, past medical history, and family history were reviewed on chart and with patient. [facility] - History History Provided By: Patient - Medical History Medical History: Medical History (Last Reviewed 05/05/18 @ 06:51 by Isacc Hightower MD) Bladder cancer Breast cancer Cataract Colon cancer - Surgical History Surgical History: Surgical History (Last Reviewed 05/05/18 @ 06:51 by Isacc Hightower MD) History of appendectomy - Family History Family History: Family History (Last Reviewed 05/05/18 @ 06:51 by Isacc Hightower MD) Father Family history of colon cancer Family history of cancer Mother Family history of cancer Family history of bone cancer Sister Family history of cancer - Social History I have reviewed the patient's Social History: Yes - Tobacco History Second Hand Smoke Exposure: No Smoking Status: Never smoker - Alcohol History How Often Do You Have a Drink Containing Alcohol: Never - Substance Use History Substance History: No History of Abuse - Travel History Recent Travel in the [place] Within the Last 8 Weeks: No Recent Travel Out of the Country Within the Last 8 Weeks: Yes - Immunization History Tetanus Immunization: <5 Years Hx Influenza Vaccine This Season: No Medications and Allergies Active Medications: Active Medications Acetaminophen (Tylenol) 650 mg PO Q4H PRN PRN Reason: Temp > 100.4 Al Hydroxide/Mg Hydroxide (Milk Of Magnesia Liq) 30 ml PO Q12H PRN PRN Reason: Mild Constipation Bisacodyl (Dulcolax Supp) 10 mg RECTAL DAILY PRN PRN Reason: SEVERE CONSITIPATION Dorzolamide HCl (Trusopt 2% Opth Drops) 1 drop EACH EYE TID [facility] Last Admin: 05/04/18 18:18 Dose: Not Given Enalaprilat (Vasotec Inj) 1.25 mg IV.PUSH Q6H PRN PRN Reason: SBP>180, DBP>95 Last Admin: 05/05/18 06:14 Dose: 1.25 mg Fluticasone Propionate (Flonase Nasal [place]) 1 spray EACH NARE DAILY [facility] Last Admin: 05/04/18 18:17 Dose: Not Given Sodium Chloride (Ns Inj) 1,000 mls @ 70 mls/hr IV.CONT .[id number] [facility] Last Admin: 05/05/18 01:41 Dose: 70 mls/hr Lactated Ringer's (Lr 1000 Ml Inj) 1,000 mls @ 30 mls/hr IV.SIG .Q24H [facility] Stop: 18 04:29 Sodium Chloride (Ns Inj) 500 mls @ 30 mls/hr IV.SIG .Q10H [facility] Lactulose (Lactulose Liq) 30 ml PO DAILY PRN PRN Reason: SEVERE CONSITIPATION Latanoprost (Xalatan 0.005% Opth Drops) 1 drop EACH EYE QPM [facility] Last Admin: 05/04/18 18:18 Dose: Not Given Meclizine HCl (Antivert) 25 mg PO DAILY PRN PRN Reason: SEE LABEL COMMENTS Metoprolol Tartrate (Lopressor) 12.5 mg PO BID [facility] Last Admin: 05/04/18 21:34 Dose: 12.5 mg Nitrofurantoin Macrocrystals (Macrobid) 100 mg PO BID [facility] Last Admin: 05/04/18 21:34 Dose: 100 mg Ondansetron HCl (Zofran Inj) 4 mg IV.PUSH Q6H PRN PRN Reason: NAUSEA OR VOMITING Pantoprazole Sodium (Protonix) 40 mg PO DAILY [facility] Pt Own Med:(Christian Myers-S.Phos-Phsal- Hyo [Uribel] 0 each PO QID [facility] Pravastatin Sodium (Pravachol) 20 mg PO DAILY [facility] Senna/Docusate Sodium (Ruby-Colace) 1 tab PO BID [facility] Last Admin: 05/04/18 21:34 Dose: 1 tab Sennosides (Senokot) 17.2 mg PO Q12H PRN PRN Reason: Moderate Constipation Sodium Chloride (Ns Flush) 2 ml IV.FLUSH BID [facility] Last Admin: 05/04/18 21:34 Dose: 2 ml Sodium Chloride (Ns Flush) 2 ml IV.FLUSH PRN PRN PRN Reason: FLUSH AFTER USING IV ACCESS Last Admin: 05/05/18 06:14 Dose: 2 ml Tramadol HCl (Ultram) 50 mg PO TID PRN PRN Reason: PAIN 2-10 Last Admin: 05/05/18 04:55 Dose: 50 mg Allergies Allergy/AdvReac Type Severity Reaction Status Date / Time codeine Allergy Severe Vomiting Verified 05/04/18 09:05 morphine Allergy Severe Vomiting Verified 05/04/18 09:05 Sulfa (Sulfonamide Allergy Severe Diarrhea Verified 05/04/18 09:05 Antibiotics) meperidine [From Demerol] Allergy Nausea Verified 05/04/18 09:05 ranitidine AdvReac Unknown loose Verified 05/04/18 09:05 stools Home Medications Medication Instructions Recorded Confirmed Type Bifidobacterium infantis [Align] 4 mg PO DAILY 05/04/18 05/04/18 History anastrozole 1 mg PO DAILY 05/04/18 05/04/18 History dorzolamide 1 drp OPHTHALMIC (EYE) TID 05/04/18 05/04/18 History fluticasone 1 spray INTRANASAL DAILY 05/04/18 05/04/18 History lansoprazole 30 mg PO HS 05/04/18 05/04/18 History latanoprost 1 drp OPHTHALMIC (EYE) QPM 05/04/18 05/04/18 History lovastatin 20 mg PO DAILY 05/04/18 05/04/18 History meclizine 25 mg PO DAILY PRN 05/04/18 05/04/18 History marcellas.naiv-cfdoa-ahn 1 tab PO QID 05/04/18 05/04/18 History [Uribel] metoprolol tartrate 12.5 mg PO BID 05/04/18 05/04/18 History nitrofurantoin monohyd/m-cryst 100 mg PO BID 05/04/18 05/04/18 History Exam Vital signs: Vital Signs 05/04/18 08:39 05/04/18 10:36 05/04/18 15:08 Temperature 98.6 F Pulse Rate 67 74 Respiratory Rate 16 16 Blood Pressure 191/92 H 160/69 H Pulse Oximetry 97 97 96 05/04/18 16:00 05/04/18 20:10 05/05/18 00:07 Temperature 98.2 F 98.4 F 98.2 F Pulse Rate 73 75 66 Respiratory Rate 16 17 17 Blood Pressure 181/67 H 152/66 H 166/74 H Pulse Oximetry 93 L 95 93 L 05/05/18 04:34 05/05/18 05:54 05/05/18 06:13 Temperature 98.2 F Pulse Rate 71 Respiratory Rate 18 18 Blood Pressure 196/88 H 173/74 H Pulse Oximetry 94 L 05/05/18 06:24 Temperature 98.1 F Pulse Rate 70 Respiratory Rate 20 Blood Pressure 160/73 H Pulse Oximetry 94 L Intake & Output 05/04/18 05/04/18 05/05/18 06:59 18:59 06:59 Intake Total 700 / 700 1480 / 1480 Balance 700 / 700 1480 / 1480 Weight 91.172 kg 91.2 kg Intake: IV 100 / 100 1000 / 1000 NS Inj 1,000 ML @ 70 mls/hr IV. 1000 / 1000 CONT .[id number] [facility] Rx#:[id number] Ofirmev Inj 1,000 mg In 100 ml 100 / 100 @ 400 mls/hr IV.SIG ONCE ONE Rx #:[id number] Oral 600 / 600 480 / 480 Other: # Voids 3 5 Date of Last Bowel Movement 05/04/18 # Bowel Movements 0 Weight On Admission 91.172 kg Narrative: Sally is a pleasant 77-year-old female. General: Awake and alert. No acute distress. Appears well-developed well- nourished Head: Normocephalic, atraumatic pupils are equal Neck: Soft, nontender, trachea midline Abdomen: Soft, nondistended Examination of right arm reveals no pain or deformity with shoulder, elbow, or wrist motion. Skin is intact. Radial pulse is palpable. Normal capillary refill in fingers. Sensation is intact in radial, ulnar, and median nerve distributions. Combine Inspector strength is +5. No lymphadenopathy noted. Examination of left arm reveals no pain or deformity with shoulder, elbow, or wrist motion. Skin is intact. Radial pulse is palpable. Normal capillary refill in fingers. Sensation is intact in radial, ulnar, and median nerve distributions. Combine Inspector strength is +5. No lymphadenopathy noted. Examination of left lower extremity reveals no pain or deformity with hip, knee , or ankle motion. Skin is intact. Sensation is intact in left foot. Dorsalis pedis pulse is palpable. Normal capillary refill and feet. Thigh and calf compartments are soft. No lymphadenopathy noted. +5 strength of ankle dorsiflexion and plantarflexion. Examination of right lower extremity reveals pain with any hip motion. She has minimal tenderness around her knee or ankle.. Skin is intact. Sensation is intact in right foot. Dorsalis pedis pulse is palpable. Normal capillary refill and feet. Thigh and calf compartments are soft. No lymphadenopathy noted. +5 strength of ankle dorsiflexion and plantarflexion. Results - Labs Result Diagrams: 05/05/18 06:05 05/04/18 09:07 Labs: Laboratory Results - last 24 hr 05/04/18 05/04/18 05/04/18 09:07 09:07 10:40 WBC 7.0 RBC 4.89 Hgb 15.1 Hct 44.8 MCV 91.6 MCH 31.0 MCHC 33.8 RDW 12.8 Plt Count 164 MPV 10.1 Neut % (Auto) 79.0 H Lymph % (Auto) 13.2 [place] % (Auto) 5.7 Eos % (Auto) 1.5 Baso % (Auto) 0.6 Neut # (Auto) 5.6 Lymph # (Auto) 0.9 L [place] # (Auto) 0.4 Eos # (Auto) 0.1 Baso # (Auto) 0.0 WBC Differential . Differential Comment Auto diff final Sodium 141 Potassium 4.2 Chloride 107 Carbon Dioxide 27.6 Anion Gap 6 BUN 14 Creatinine 0.93 Estimated GFR 59 L Random Glucose 96 Calcium 9.0 Total Bilirubin 0.7 AST 33 ALT 32 Alkaline Phosphatase 114 Total Protein 7.5 Albumin 4.2 Urine Color Straw Urine Clarity Clear Urine pH 7.0 Ur Specific [place] 1.006 Urine Protein Negative Urine Glucose (UA) Negative Urine Ketones Negative Urine Occult Blood Negative Urine Nitrate Negative Urine Bilirubin Negative Urine Urobilinogen Less than 2 Ur Leukocyte Esterase Trace H Urine RBC 1 Urine WBC 4 Ur Squamous Epith Cells <1 Urine Bacteria Rare H Urine Mucus Few H Ur Microscopic Review Not Reportable 05/05/18 06:05 WBC 9.0 RBC 4.42 Hgb 14.0 Hct 40.5 MCV 91.7 MCH 31.7 MCHC 34.6 RDW 12.6 Plt Count 128 L MPV 9.7 Neut % (Auto) 80.4 H Lymph % (Auto) 9.6 [place] % (Auto) 6.4 Eos % (Auto) 2.8 Baso % (Auto) 0.8 Neut # (Auto) 7.3 Lymph # (Auto) 0.9 L [place] # (Auto) 0.6 Eos # (Auto) 0.3 Baso # (Auto) 0.1 WBC Differential . Differential Comment Auto diff final Sodium Potassium Chloride Carbon Dioxide Anion Gap BUN Creatinine Estimated GFR Random Glucose Calcium Total Bilirubin AST ALT Alkaline Phosphatase Total Protein Albumin Urine Color Urine Clarity Urine pH Ur Specific [place] Urine Protein Urine Glucose (UA) Urine Ketones Urine Occult Blood Urine Nitrate Urine Bilirubin Urine Urobilinogen Ur Leukocyte Esterase Urine RBC Urine WBC Ur Squamous Epith Cells Urine Bacteria Urine Mucus Ur Microscopic Review - Diagnostic results Imaging: Impressions Hip X-Ray 05/04/18 09:01 CONCLUSION: Femoral neck fracture, nondisplaced. Pelvis X-Ray 05/04/18 09:01 CONCLUSION: Nondisplaced fracture of the right femoral neck. Hip CT 05/04/18 10:34 CONCLUSION: 1. Comminuted mildly displaced fracture of the right femoral neck. Hip x-ray: report reviewed, image reviewed Assessment and Plan - Assessment and Plan Sally is a 37-year-old female. She had a fall resulting in right femoral neck fracture. Treatment options were discussed with patient including open reduction internal fixation, hemiarthroplasty, and total hip arthroplasty. She is very active and walks daily for exercise. She would like to maintain a very active lifestyle. After discussion of the risk and benefits of each of these potential procedures, she would like to proceed with total hip arthroplasty. All questions were answered. The risk and benefits of surgery were discussed in depth with patient. The risk of surgery include bleeding, infection, injuries to arteries, nerves, or blood vessels, infection, wound complications, leg length discrepancy, hip dislocation, trochanteric bursitis, painful hardware, and need for further surgery. I also discussed medical complications including blood clots, pneumonia, stroke, heart attack, and . Informed consent was obtained and all questions were answered. N.p.o.--plan on surgery this morning Calcium and vitamin D supplementation Physical therapy consult Follow-up with Dr. Hightower in 2 weeks Jaclyn, IRENE israel ASA A mid-level provider in my office (nurse practitioner or physician bookkeeper assistant) may see this patient on follow-up visits and continue to implement the objectives of this plan including: Starting or adjusting medications, injections , cast application, orthotics, brace application, physical therapy, radiological studies (including x-ray, MRI, CT, ultrasound, bone scan), vascular studies, neurologic studies, specialist consultation, and proceeding with surgical management, as appropriate.
[2018-05-05 07:01] LABS: Calcium 8.4 mg/dL (8.5-10.1); Carbon Dioxide 24.7 meq/L (21.0-32.0); Potassium 3.6 meq/L (3.5-5.1)
[2018-05-05] MEDS ORDERED: Bupivacaine Liposomal PF 1.3% Inj 20 ML Vial INFILTRATN ONE (07:20)
[2018-05-05] MEDS ORDERED: Tranexamic Acid Inj 1,400 MG in Sodium Chlor 0.9% Inj 100 ML IV.SIG ONE (07:20)
[2018-05-05] MEDS ORDERED: Sodium Chlor 0.9% Inj 40 ML, Bupivacaine Liposo PF 1.3% Inj 20 ML, Bupivacaine PF 0.25%... P-ARTICULR ONE ×3 (07:24)
[2018-05-05] MEDS ORDERED: ceFAZolin 1 GM Premix Inj 2 GM/100 ML PIGGYBACK IV.SIG ONE (07:25)
[2018-05-05] MEDS: Metoprolol Tartrate 25 MG Tablet PO SCH ×2 (09:00→21:57)
[2018-05-05] MEDS: Senna/Docusate Sodium 8.6/50 MG Tablet PO SCH ×2 (09:00→21:56)
[2018-05-05] MEDS: Dorzolamide 2% Opth Drops 10 ML Bottle EACH EYE SCH ×3 (09:00→17:44)
[2018-05-05] MEDS: Nitrofurantoin Monohydrate-Macrocrystal 100 MG Capsule PO SCH ×2 (09:00→21:54)
--- NOTE | 2018-05-05 09:45 | P.OP ---
- Preoperative Diagnosis (1) Displaced fracture of right femoral neck Date of procedure: 05/05/18 Procedure: Right total hip arthroplasty via anterior approach Anesthesia: GETA Surgeon: Isacc Hightower MD Automotive Glass Installer: LAWSON Jean PA-C The surgical procedure was assisted by my physician assistant finance director. My P.A. presence was necessary throughout this case for the manipulation and positioning of the surgical extremity. My P.A. was assisting me throughout the duration of this procedure. The skill set of a physician assistant finance director was medically necessary to complete this procedure. During the surgical case the surgical instrument maker was working at the back table and the physician assistant finance director was directly assisting me. Operation and Findings: PLAN OF ACTIVITY Weight bear as tolerated. IMPLANTS USED DePuy Corail size [14] collared stem with a size [50] Goldston Gription cup, [50 /32] Altrx poly liner, and a [32] metal head. DETAILS OF PROCEDURE: Sally had a fall yesterday resulting in right femoral neck fracture. Preoperatively I discussed with her treatment options including open reduction internal fixation, right hip hemiarthroplasty, and right total hip arthroplasty. She is very active and enjoys walking a lot. She would like to have the best possible functional outcome. After discussion of the risk and benefits of each procedure, she would like to proceed with total hip arthroplasty. Informed consent was confirmed. Operative site was marked. Patient was brought to OR and placed on OR table. IV sedation and general anesthesia was administered by anesthesiologist. Patient positioned on a Casie table and was given IV antibiotics. Time-out procedure was performed. The hip and thigh were prepped with alcohol followed by Hibiclens. The thigh was draped in the usual sterile fashion. Clean Air Suite was used for this procedure. The procedure began with a 5-inch incision over the anterolateral thigh. Subcutaneous tissue was dissected with Bovie. The fascia over the tensa fasciae latae was incised. Care was taken to avoid injury to the lateral femoral cutaneous nerve. The tensor muscle was retracted laterally. Sartorius was retracted medially. Retractors were now placed. The reflected head of the rectus is now elevated. A capsulotomy was performed over the anterior head capsule. Sutures were placed to help retract the capsule. At this point the femoral head and neck were identified. With soft tissue protected, oscillating saw was used to make a cut through the femoral neck, the femoral head was now removed. At this point attention was turned to preparation of the acetabulum. The labrum was excised. The acetabulum was sequentially reamed up to size [50]. A Goldston cup was now placed. Fluoroscopy was used to aid in identification of appropriate version. Cup was fully impacted and found to have excellent fit. Hole eliminator was now placed. The liner was now impacted into the cup. At this point the hip was externally rotated. A hook was placed around the proximal femur. The capsule was released off the lateral and medial femur. The hip was now extended and adducted. Retractors were placed around the proximal femur to allow for exposure. A box osteotome was used to remove the lateral cortex of the femoral neck. A broach was used to help lateralize the prosthesis. Canal finder was used to create a path down the canal. Next, the canal was sequentially broached up to size [14]. This was found to be an excellent fit. Calcar planer was placed. A standard head was placed, and the hip was reduced. The hip was found to have excellent stability with good range of motion. The leg lengths were measured under fluoroscopy and found to be equal compared to preoperatively. Trial broach was removed. The Corail stem was opened. Stem was fully impacted into the proximal femur in appropriate version. The femoral head was placed. The hip was again reduced. Fluoroscopy confirmed excellent alignment of prosthesis. The wound was thoroughly irrigated and capsule was closed with #1 Vicryl. The fascia over the tensor fasciae muscle was closed with #1 Vicryl, subcutaneous tissue was closed with 3-0 Vicryl and the skin was closed with jacky and Dermabond skin closure. The capsule layers, muscle, and subcutaneous tissue were injected with a mixture of saline and bupivicaine. Dressings were applied. The patient was transferred to Recovery Room in stable condition.
[2018-05-05] MEDS ORDERED: Morphine Inj 4 MG/ML Vial IV.PUSH PRN (09:49)
[2018-05-05] MEDS ORDERED: Post-op Orders (for Pharmacy) OTHER STA (09:49)
[2018-05-05] MEDS ORDERED: Promethazine 25 MG Supp RECTAL PRN (09:49)
[2018-05-05] MEDS ORDERED: fentaNYL Citrate Inj 100 MCG/2 ML Ampul ONE (10:10)
--- NOTE | 2018-05-05 10:37 | P.PN ---
Subjective Interval history: Was seen after surgery today. She is up in the chair. Says no pain at the surgical site. No n/v/d/c. No fever or chills. Physical Exam Vital signs: Vital Signs 05/04/18 10:36 05/04/18 15:08 05/04/18 16:00 Temperature 98.2 F Pulse Rate 74 73 Respiratory Rate 16 16 Blood Pressure 160/69 H 181/67 H Pulse Oximetry 97 96 93 L 05/04/18 20:10 05/05/18 00:07 05/05/18 04:34 Temperature 98.4 F 98.2 F 98.2 F Pulse Rate 75 66 71 Respiratory Rate 17 17 18 Blood Pressure 152/66 H 166/74 H 196/88 H Pulse Oximetry 95 93 L 94 L 05/05/18 05:54 05/05/18 06:13 05/05/18 06:24 Temperature 98.1 F Pulse Rate 70 Respiratory Rate 18 20 Blood Pressure 173/74 H 160/73 H Pulse Oximetry 94 L 05/05/18 10:04 05/05/18 10:15 Temperature 98 F Pulse Rate 66 65 Respiratory Rate 20 18 Blood Pressure 109/51 L 104/58 L Pulse Oximetry 94 L 97 Intake & Output 05/04/18 05/05/18 05/05/18 18:59 06:59 18:59 Intake Total 700 / 700 1480 / 1480 600 / 600 Output Total 200 / 200 Balance 700 / 700 1480 / 1480 400 / 400 Weight 91.172 kg 91.2 kg Intake: IV 100 / 100 1000 / 1000 NS Inj 1,000 ML @ 70 mls/hr IV. 1000 / 1000 CONT .[id number] [facility] Rx#:[id number] Ofirmev Inj 1,000 mg In 100 ml 100 / 100 @ 400 mls/hr IV.SIG ONCE ONE Rx #:[id number] Oral 600 / 600 480 / 480 Anesthesia Amount 600 / 600 Output: Estimated Blood Loss 200 / 200 Other: # Voids 3 5 Date of Last Bowel Movement 05/04/18 # Bowel Movements 0 Weight On Admission 91.172 kg Narrative: GENERAL: Very pleasant 77 yo female, well nourished, well developed, appears in nad. CARDIOVASCULAR: Regular rate and rhythm. RESPIRATORY: No accessory muscle use. Clear to auscultation. Breath sounds equal bilaterally. GASTROINTESTINAL: Abdomen soft, non-tender, nondistended. Hepatic and splenic margins not palpable. MUSCULOSKELETAL: Extremities without clubbing, cyanosis, or edema. Right hip s/ p surgery. Neurovascular intact. NEUROLOGICAL: Awake and alert. No obvious cranial nerve deficits. Motor grossly within normal limits. Normal speech. PSYCHIATRIC: Appropriate mood and affect; insight and judgment normal. Results - Labs CBC & Chem 7: 05/05/18 06:05 05/05/18 06:05 Laboratory Results - last 24 hr 05/04/18 05/05/18 05/05/18 10:40 06:05 06:05 WBC 9.0 RBC 4.42 Hgb 14.0 Hct 40.5 MCV 91.7 MCH 31.7 MCHC 34.6 RDW 12.6 Plt Count 128 L MPV 9.7 Neut % (Auto) 80.4 H Lymph % (Auto) 9.6 [place] % (Auto) 6.4 Eos % (Auto) 2.8 Baso % (Auto) 0.8 Neut # (Auto) 7.3 Lymph # (Auto) 0.9 L [place] # (Auto) 0.6 Eos # (Auto) 0.3 Baso # (Auto) 0.1 WBC Differential . Differential Comment Auto diff final Sodium 140 Potassium 3.6 Chloride 108 H Carbon Dioxide 24.7 Anion Gap 7 BUN 10 Creatinine 0.76 Estimated GFR 74 L Random Glucose 105 Calcium 8.4 L Urine Color Straw Urine Clarity Clear Urine pH 7.0 Ur Specific [place] 1.006 Urine Protein Negative Urine Glucose (UA) Negative Urine Ketones Negative Urine Occult Blood Negative Urine Nitrate Negative Urine Bilirubin Negative Urine Urobilinogen Less than 2 Ur Leukocyte Esterase Trace H Urine RBC 1 Urine WBC 4 Ur Squamous Epith Cells <1 Urine Bacteria Rare H Urine Mucus Few H Ur Microscopic Review Not Reportable - Imaging Impressions Hip CT 05/04/18 10:34 CONCLUSION: 1. Comminuted mildly displaced fracture of the right femoral neck. - Procedures s/p Right total hip arthroplasty via anterior approach 05/05/[address] Amrita moy. Assessment and Plan - Plan Very pleasant 77 yo female s/p mechanical fall S/P mechanical fall with right femoral neck closed fracture X ray reviewed as above Ortho consulted,. Dr Crowe. s/p Right total hip arthroplasty via anterior approach 05/05/[address] Amrita moy. Chronic medical problems appears stable at this time Restart home meds as appropriate DVT ppx scd/teds. 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
[2018-05-05] MEDS ORDERED: *Ondansetron Inj 4 MG/2 ML Vial PERIprocedural Use ONLY ONE (10:38)
--- NOTE | 2018-05-05 10:46 | XR ---
EXAM DATE: 05/05/2018 10:42 AM EST AGE/SEX: 77 years / Female INDICATIONS: Post operative, right hip replacement. CLINICAL DATA: This is the patient's initial encounter. Patient reports that signs and symptoms have been present for 1 day and indicates a pain score of Nonresponsive. MEDICAL/SURGICAL HISTORY: Non-responsive. Non-responsive. COMPARISON: [facility] [place], HIP RIGHT 2V, 05/04/2018. . FINDINGS: There has been interval total right hip arthroplasty. The persistence appears normal in orientation a djacent osseous structures are unremarkable. CONCLUSION: Status post total right hip arthroplasty with good anatomic alignment of the prosthesis. Electronically signed by: Mayte Andres MD Board Certified Radiologist 05/05/2018 10:44 AM Gus HASTINGS
[2018-05-05] MEDS ORDERED: Tranexamic Acid Inj 1,000 MG in Sodium Chlor 0.9% Inj 100 ML IV.SIG SCH (11:00)
--- NOTE | 2018-05-05 11:53 | ECG ---
Date Performed: 05/05/2018 Time Performed: 04:12:30 PTAGE: 77 years EKG: Sinus arrhythmia Lateral T wave changes are nonspecific Borderline ECG PREVIOUS TRACING :07/09/2012 @11.18 Compared to previous tracing, lateral T-wave changes are no w present. DOCTOR: Wilton Flynn Interpretating Date/Time 05/05/2018 11:52:04
[2018-05-05] MEDS: Calcium/Vitamin D 250/125 MG Tablet PO SCH ×2 (13:00→17:44)
--- NOTE | 2018-05-05 13:34 | XR ---
EXAM DATE: 05/05/2018 1:32 PM EST AGE/SEX: 77 years / Female INDICATIONS: Right anterior hip replacement. CLINICAL DATA: This is the patient's subsequent encounter. Patient reports that signs and symptoms h ave been present for 2 days and indicates a pain score of Nonresponsive. MEDICAL/SURGICAL HISTORY: None. Non-responsive. COMPARISON: [facility], HIP RIGHT W AP PELVIS 2V, 05/05/2018. . FINDINGS: Total hip arthroplasty is in place. The femoral and acetabular components appear intact. There are no signs of loosening or fracture. CONCLUSION: Intact total hip prosthesis for technique. Electronically signed by: Alexx Oquendo MD Board Certified Radiologist 05/05/2018 1:33 PM EST
[2018-05-05] MEDS: ceFAZolin 2 GM Premix Inj 2 GM/50 ML PIGGYBACK IV.SIG SCH (16:12)
[2018-05-05] MEDS: Latanoprost 0.005% Opth Drops 2.5 ML Bottle EACH EYE SCH (17:44)
[2018-05-05] MEDS: Vancomycin Inj 1,000 MG in Sodium Chlor 0.9% Inj 250 ML IV.SIG SCH (21:53)
[2018-05-05] MEDS: Celecoxib 200 MG Capsule PO SCH ×2 (21:54→23:05)
[2018-05-06] MEDS: ceFAZolin 2 GM Premix Inj 2 GM/50 ML PIGGYBACK IV.SIG SCH ×2 (01:00→09:05)
[2018-05-06 05:29] LABS: Hematocrit 34.9 % (35.0-46.0); Hemoglobin 11.9 gm/dL (11.6-15.3)
--- NOTE | 2018-05-06 06:38 | P.PNOP ---
Subjective Interval history: POD 1 s/p Right Anterior JULES doing well. states pain well controlled. reports out of bed and walking yesterday with minimal difficulty Physical Exam Vital signs: Vital Signs 05/05/18 10:04 05/05/18 10:15 05/05/18 10:30 Temperature 98 F 98 F Pulse Rate 66 65 61 Respiratory Rate 20 18 18 Blood Pressure 109/51 L 104/58 L 103/54 L Pulse Oximetry 94 L 97 97 05/05/18 12:00 05/05/18 13:47 05/05/18 16:00 Temperature 97.5 F L 97.6 F Pulse Rate 57 L 62 Respiratory Rate 16 16 Blood Pressure 98/51 L 103/50 L Pulse Oximetry 95 98 94 L 05/05/18 16:38 05/05/18 20:27 05/05/18 21:50 Temperature 98.1 F Pulse Rate 71 Respiratory Rate 16 16 Blood Pressure 138/62 Pulse Oximetry 96 93 L 05/05/18 21:58 05/05/18 23:05 05/06/18 00:31 Temperature 98.5 F Pulse Rate 74 Respiratory Rate 20 20 16 Blood Pressure 142/63 H Pulse Oximetry 93 L 05/06/18 05:29 Temperature 98.5 F Pulse Rate 79 Respiratory Rate 16 Blood Pressure 136/60 Pulse Oximetry 95 Intake & Output 05/05/18 05/05/18 05/06/18 06:59 18:59 06:59 Intake Total 1480 / 1480 2100 / 2100 1470 / 1470 Output Total 200 / 200 Balance 1480 / 1480 1900 / 1900 1470 / 1470 Weight 91.2 kg 93.6 kg Intake: IV 1000 / 1000 1050 / 1050 750 / 750 LR 1000 mL Inj 1,000 ML @ 80 700 / 700 mls/hr IV.CONT .[id number] [facility] Rx# :[id number] NS Inj 1,000 ML @ 70 mls/hr IV. 1000 / 1000 1000 / 1000 CONT .[id number] [facility] Rx#:[id number] Vancomycin Inj 1,000 MG In NS 0 / 0 Inj 250 ML @ 200 mls/hr IV.SIG Q12H [facility] Rx#:[id number] Ancef 2 GM Premix Inj 2 gm In 50 / 50 50 / 50 50 ml @ 100 mls/hr IV.SIG Q8H [facility] Rx#:[id number] Oral 480 / 480 450 / 450 720 / 720 Anesthesia Amount 600 / 600 Output: Estimated Blood Loss 200 / 200 Other: # Voids 5 4 4 Date of Last Bowel Movement 05/04/18 05/04/18 05/04/18 # Bowel Movements 0 0 Narrative: RLE: dressing clean and dry. intact. NVI. Results - Labs CBC & Chem 7: 05/06/18 04:43 05/05/18 06:05 Laboratory Results - last 24 hr 05/05/18 05/05/18 05/06/18 06:05 06:05 04:43 WBC 9.0 RBC 4.42 Hgb 14.0 11.9 D Hct 40.5 34.9 L MCV 91.7 MCH 31.7 MCHC 34.6 RDW 12.6 Plt Count 128 L MPV 9.7 Neut % (Auto) 80.4 H Lymph % (Auto) 9.6 [place] % (Auto) 6.4 Eos % (Auto) 2.8 Baso % (Auto) 0.8 Neut # (Auto) 7.3 Lymph # (Auto) 0.9 L [place] # (Auto) 0.6 Eos # (Auto) 0.3 Baso # (Auto) 0.1 WBC Differential . Differential Comment Auto diff final Sodium 140 Potassium 3.6 Chloride 108 H Carbon Dioxide 24.7 Anion Gap 7 BUN 10 Creatinine 0.76 Estimated GFR 74 L Random Glucose 105 Calcium 8.4 L - Imaging Impressions Hip X-Ray 05/05/18 00:00 CONCLUSION: Intact total hip prosthesis for technique. Hip X-Ray 05/05/18 09:51 CONCLUSION: Status post total right hip arthroplasty with good anatomic alignment of the prosthesis. - Procedures s/p Right total hip arthroplasty via anterior approach 05/05/[address] Crowe ortho. Assessment and Plan - Assessment and Plan 1) Right Femoral Neck Fx s/p Anterior JULES - POD 1 -WBAT -maintain surgical dressing x 6 days then progress to daily with primapore -work with therapy today -will plan for possible DC home tomorrow -home therapy to be arranged by our office nurse case management. no official C needed -patient unable to have any type of blood thinners due to hx of stroke. -f/u with Amrita or ELLIS in 2 weeks [facility] Prescription Drug Monitoring Database has been queried and verified prior to prescribing the controlled substance. Acute pain exception. This patient has normal, predicted, physiological, and time limited response to an adverse mechanical stimulus associated with surgery, trauma, or acute illness as described in my notes. There is a lack of alternative treatment options other than to include the prescribed narcotic treatment for this condition.
--- NOTE | 2018-05-06 08:55 | P.PN ---
Subjective Interval history: Randlett nauseated in the morning but did not bottle night. Was able to tolerate food. Since she was also dizzy when she started walking today with physical therapy. Feels better now. No nausea or vomiting no diarrhea constipation. Had a bowel movement in the morning. No fever or chills. Physical Exam Vital signs: Vital Signs 05/05/18 10:04 05/05/18 10:15 05/05/18 10:30 Temperature 98 F 98 F Pulse Rate 66 65 61 Respiratory Rate 20 18 18 Blood Pressure 109/51 L 104/58 L 103/54 L Pulse Oximetry 94 L 97 97 05/05/18 12:00 05/05/18 13:47 05/05/18 16:00 Temperature 97.5 F L 97.6 F Pulse Rate 57 L 62 Respiratory Rate 16 16 Blood Pressure 98/51 L 103/50 L Pulse Oximetry 95 98 94 L 05/05/18 16:38 05/05/18 20:27 05/05/18 21:50 Temperature 98.1 F Pulse Rate 71 Respiratory Rate 16 16 Blood Pressure 138/62 Pulse Oximetry 96 93 L 05/05/18 21:58 05/05/18 23:05 05/06/18 00:31 Temperature 98.5 F Pulse Rate 74 Respiratory Rate 20 20 16 Blood Pressure 142/63 H Pulse Oximetry 93 L 05/06/18 05:29 Temperature 98.5 F Pulse Rate 79 Respiratory Rate 16 Blood Pressure 136/60 Pulse Oximetry 95 Intake & Output 05/05/18 05/06/18 05/06/18 18:59 06:59 18:59 Intake Total 2100 / 2100 1470 / 1470 Output Total 200 / 200 Balance 1900 / 1900 1470 / 1470 Weight 93.6 kg Intake: IV 1050 / 1050 750 / 750 LR 1000 mL Inj 1,000 ML @ 80 700 / 700 mls/hr IV.CONT .[id number] [facility] Rx# :[id number] NS Inj 1,000 ML @ 70 mls/hr IV. 1000 / 1000 CONT .[id number] [facility] Rx#:[id number] Vancomycin Inj 1,000 MG In NS 0 / 0 Inj 250 ML @ 200 mls/hr IV.SIG Q12H [facility] Rx#:[id number] Ancef 2 GM Premix Inj 2 gm In 50 / 50 50 / 50 50 ml @ 100 mls/hr IV.SIG Q8H [facility] Rx#:[id number] Oral 450 / 450 720 / 720 Anesthesia Amount 600 / 600 Output: Estimated Blood Loss 200 / 200 Other: # Voids 4 4 Date of Last Bowel Movement 05/04/18 05/04/18 # Bowel Movements 0 Narrative: GENERAL: Very pleasant 77 yo female, well nourished, well developed, appears in nad. CARDIOVASCULAR: Regular rate and rhythm. RESPIRATORY: No accessory muscle use. Clear to auscultation. Breath sounds equal bilaterally. GASTROINTESTINAL: Abdomen soft, non-tender, nondistended. Hepatic and splenic margins not palpable. MUSCULOSKELETAL: Extremities without clubbing, cyanosis, or edema. Right hip s/ p surgery. Neurovascular intact. NEUROLOGICAL: Awake and alert. No obvious cranial nerve deficits. Motor grossly within normal limits. Normal speech. PSYCHIATRIC: Appropriate mood and affect; insight and judgment normal. Results - Labs CBC & Chem 7: 05/06/18 04:43 05/05/18 06:05 Laboratory Results - last 24 hr 05/06/18 04:43 Hgb 11.9 D Hct 34.9 L - Imaging Impressions Hip X-Ray 05/05/18 00:00 CONCLUSION: Intact total hip prosthesis for technique. Hip X-Ray 05/05/18 09:51 CONCLUSION: Status post total right hip arthroplasty with good anatomic alignment of the prosthesis. - Procedures s/p Right total hip arthroplasty via anterior approach 05/05/[address] Amrita moy. Assessment and Plan - Plan Very pleasant 77 yo female s/p mechanical fall S/P mechanical fall with right femoral neck closed fracture X ray reviewed as above Ortho consulted,. Dr Crowe. s/p Right total hip arthroplasty via anterior approach 05/05/[address] Amrita moy. Nausea: zofran as need Chronic medical problems appears stable at this time Restart home meds as appropriate DVT ppx scd/teds. 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 DC tomorrow
[2018-05-06] MEDS: Nitrofurantoin Monohydrate-Macrocrystal 100 MG Capsule PO SCH ×2 (08:56→21:55)
[2018-05-06] MEDS: Celecoxib 200 MG Capsule PO SCH ×2 (08:56→21:52)
--- NOTE | 2018-05-06 08:56 | P.DS ---
Date of admission: 05/04/18 10:48 Primary care physician: Hillary Lu MD Brief History from admission: The patient is a very pleasant 77-year-old female with carmita h/o colon/ breast CA, who presents to the emergency department having had a mechanical fall when she was at a store. She tripped and landed on her right hip. She reports moderate severity pain in the right hip, constant, with no associated numbness or weakness. She did not hit her head. She is not on any blood thinners. 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 She also has multiple meds allergies. Says however she was deemed healthy by all her doctors. Says she had a recent cardiac stress test and was normal. No other complaints. Deneis cp, sob, n/v/d/c. No headache change in vision, focal deficit. No urinary complaints. No n/v/d/c. DS: Diagnosis - Discharge Diagnosis (1) Displaced fracture of right femoral neck Status: Acute (2) Femoral neck fracture Status: Acute DS: Medications - Discharge Medications Prescriptions: cholecalciferol (vitamin D3) 5,000 unit PO DAILY #60 cap hydrocodone-acetaminophen [[place]] 1 tab PO Q4H #40 tab rivaroxaban [Xarelto] 10 mg PO DAILY #14 tab DS: Summary Hospital Course: Very pleasant 77 yo female s/p mechanical fall S/P mechanical fall with right femoral neck closed fracture X ray reviewed as above Ortho consulted,. Dr Crowe. s/p Right total hip arthroplasty via anterior approach 05/05/[address] Crowe ortho. Nausea: zofran as need Chronic medical problems appears stable at this time Improved, DC home in stable condition to follow up as OP with PCP and consultants - Time Spent with Patient Total time spent providing and/or coordinating discharge services: Greater than 30 minutes - Quality: VTE Deep Vein Thrombosis/Pulmonary Embolism Present on Admission: No Exam Vital signs: Vital Signs 05/05/18 10:04 05/05/18 10:15 05/05/18 10:30 Temperature 98 F 98 F Pulse Rate 66 65 61 Respiratory Rate 20 18 18 Blood Pressure 109/51 L 104/58 L 103/54 L Pulse Oximetry 94 L 97 97 05/05/18 12:00 05/05/18 13:47 05/05/18 16:00 Temperature 97.5 F L 97.6 F Pulse Rate 57 L 62 Respiratory Rate 16 16 Blood Pressure 98/51 L 103/50 L Pulse Oximetry 95 98 94 L 05/05/18 16:38 05/05/18 20:27 05/05/18 21:50 Temperature 98.1 F Pulse Rate 71 Respiratory Rate 16 16 Blood Pressure 138/62 Pulse Oximetry 96 93 L 05/05/18 21:58 05/05/18 23:05 05/06/18 00:31 Temperature 98.5 F Pulse Rate 74 Respiratory Rate 20 20 16 Blood Pressure 142/63 H Pulse Oximetry 93 L 05/06/18 05:29 Temperature 98.5 F Pulse Rate 79 Respiratory Rate 16 Blood Pressure 136/60 Pulse Oximetry 95 Intake & Output 05/05/18 05/06/18 05/06/18 18:59 06:59 18:59 Intake Total 2100 / 2100 1470 / 1470 Output Total 200 / 200 Balance 1900 / 1900 1470 / 1470 Weight 93.6 kg Intake: IV 1050 / 1050 750 / 750 LR 1000 mL Inj 1,000 ML @ 80 700 / 700 mls/hr IV.CONT .[id number] [facility] Rx# :[id number] NS Inj 1,000 ML @ 70 mls/hr IV. 1000 / 1000 CONT .[id number] [facility] Rx#:[id number] Vancomycin Inj 1,000 MG In NS 0 / 0 Inj 250 ML @ 200 mls/hr IV.SIG Q12H [facility] Rx#:[id number] Ancef 2 GM Premix Inj 2 gm In 50 / 50 50 / 50 50 ml @ 100 mls/hr IV.SIG Q8H [facility] Rx#:[id number] Oral 450 / 450 720 / 720 Anesthesia Amount 600 / 600 Output: Estimated Blood Loss 200 / 200 Other: # Voids 4 4 Date of Last Bowel Movement 05/04/18 05/04/18 # Bowel Movements 0 Narrative: GENERAL: Very pleasant 77 yo female, well nourished, well developed, appears in nad. CARDIOVASCULAR: Regular rate and rhythm. RESPIRATORY: No accessory muscle use. Clear to auscultation. Breath sounds equal bilaterally. GASTROINTESTINAL: Abdomen soft, non-tender, nondistended. Hepatic and splenic margins not palpable. MUSCULOSKELETAL: Extremities without clubbing, cyanosis, or edema. Right hip s/ p surgery. Neurovascular intact. NEUROLOGICAL: Awake and alert. No obvious cranial nerve deficits. Motor grossly within normal limits. Normal speech. PSYCHIATRIC: Appropriate mood and affect; insight and judgment normal. Results Procedures completed during hospitalization: s/p Right total hip arthroplasty via anterior approach 05/05/[address] Amrita moy. Labs on day of discharge: Labs from last 24 hours 05/06/18 04:43 Hgb 11.9 D Hct 34.9 L - Impressions ITS Impressions Pelvis X-Ray 05/04/18 09:01 CONCLUSION: Nondisplaced fracture of the right femoral neck. Hip CT 05/04/18 10:34 CONCLUSION: 1. Comminuted mildly displaced fracture of the right femoral neck. Hip X-Ray 05/05/18 09:51 CONCLUSION: Status post total right hip arthroplasty with good anatomic alignment of the prosthesis. Discharge Plan - Discharge Disposition Patient Disposition: Discharge Home - Discharge Condition Condition: Stable - Discharge Order Discharge Orders: Discharge Order (Routine); Ordered 05/07/18 Ordered By: Kiara Sahu Orthopedic Clear for Discharge (Routine); Ordered 05/07/18 Ordered By: Chace Gauthier - Discharge Details Anticipated Discharge Date: 05/07/18 - Physicians Team Primary Care Provider: Hillary Lu Attending Provider: Kiara Sahu Other Providers: Isacc Crowe MD
[2018-05-06] MEDS: Calcium/Vitamin D 250/125 MG Tablet PO SCH ×3 (08:58→17:53)
[2018-05-06] MEDS: Vancomycin Inj 1,000 MG in Sodium Chlor 0.9% Inj 250 ML IV.SIG SCH (08:59)
[2018-05-06] MEDS: Senna/Docusate Sodium 8.6/50 MG Tablet PO SCH ×2 (09:07→21:54)
[2018-05-06] MEDS: Metoprolol Tartrate 25 MG Tablet PO SCH ×2 (09:07→21:53)
[2018-05-06] MEDS: Dorzolamide 2% Opth Drops 10 ML Bottle EACH EYE SCH ×3 (14:33→17:53)
[2018-05-06] MEDS: Sod Chloride 0.9% Inj 1,000 ML IV.CONT SCH (14:33)
[2018-05-06] MEDS: Latanoprost 0.005% Opth Drops 2.5 ML Bottle EACH EYE SCH (17:53)
--- NOTE | 2018-05-07 06:51 | P.PNOP ---
Subjective Interval history: POD 2 s/p right anterior JULES states had issues ambulating yesterday. reports that when she got up she got really dizzy and had to sit down. reports that soreness from her fall is catching up with her. still interested in going home, but concerned about if she is ready yet. Physical Exam Vital signs: Vital Signs 05/06/18 08:20 05/06/18 09:25 05/06/18 11:11 Temperature 98.3 F Pulse Rate 77 Respiratory Rate 18 16 Blood Pressure 149/64 H Pulse Oximetry 96 96 05/06/18 12:14 05/06/18 15:59 05/06/18 20:05 Temperature 97.9 F 98.3 F 98.6 F Pulse Rate 76 76 82 Respiratory Rate 14 18 17 Blood Pressure 132/59 L 136/74 141/65 H Pulse Oximetry 96 94 L 92 L 05/07/18 00:25 05/07/18 04:50 Temperature 98.3 F 98.2 F Pulse Rate 82 85 Respiratory Rate 17 17 Blood Pressure 132/58 L 150/75 H Pulse Oximetry 92 L 96 Intake & Output 05/06/1818 05/07/18 06:59 18:59 06:59 Intake Total 1820 / 1820 400 / 400 1000 / 1000 Balance 1820 / 1820 400 / 400 1000 / 1000 Weight 93.6 kg 93.3 kg Intake: IV 1100 / 1100 400 / 400 100 / 100 LR 1000 mL Inj 1,000 ML @ 80 700 / 700 300 / 300 mls/hr IV.CONT .[id number] ROSA Rx# :[id number] Ofirmev Inj 1,000 mg In 100 ml 100 / 100 100 / 100 100 / 100 @ 400 mls/hr IV.SIG Q12H ROSA Rx #:[id number] Vancomycin Inj 1,000 MG In NS 250 / 250 Inj 250 ML @ 200 mls/hr IV.SIG Q12H ROSA Rx#:[id number] Ancef 2 GM Premix Inj 2 gm In 50 / 50 50 ml @ 100 mls/hr IV.SIG Q8H ROSA Rx#:[id number] Oral 720 / 720 900 / 900 Other: # Voids 4 4 Date of Last Bowel Movement 05/04/18 05/04/18 05/04/18 # Bowel Movements 0 0 Narrative: RLE: dressings clean and dry. intact. NVI Results - Labs CBC & Chem 7: 05/06/18 04:43 05/05/18 06:05 - Procedures s/p Right total hip arthroplasty via anterior approach 05/05/[address] Amrita moy. Assessment and Plan - Assessment and Plan 1) Right Femoral Neck Fx s/p Anterior JULES - POD 2 -WBAT -maintain surgical dressing x 6 days then progress to daily with primapore -work with therapy today. if doing well by this afternoon and dizziness has subsided, ok for DC home. -if still having issue, ok to keep til tomorrow and plan for DC then -home therapy to be arranged by our office caseworker. no official C needed -patient unable to have any type of blood thinners due to hx of stroke. -f/u with Amrita or [facility]LLIS in 2 weeks [facility] Prescription Drug Monitoring Database has been queried and verified prior to prescribing the controlled substance. Acute pain exception. This patient has normal, predicted, physiological, and time limited response to an adverse mechanical stimulus associated with surgery, trauma, or acute illness as described in my notes. There is a lack of alternative treatment options other than to include the prescribed narcotic treatment for this condition.
--- NOTE | 2018-05-07 08:54 | P.PNIM ---
Subjective Interval history: Patient is seen lying quietly in bed. She tells me that she had an episode of dizziness today while working with physical therapy. It has now resolved. Tells me it was almost more of a fainting feeling rather than a room spinning feeling. No history of vertigo or orthostatic hypotension. No headache or changes in vision. No chest pain or shortness of breath. No nausea vomiting or diarrhea. Physical Exam Vital signs: Last Vital Signs Temp 98.2 F 05/07/18 04:50 Pulse 85 05/07/18 04:50 Resp 17 05/07/18 04:50 BP 150/75 H 05/07/18 04:50 Pulse Ox 96 05/07/18 04:50 Intake & Output 05/05/18 05/06/18 05/07/18 05/08/18 06:59 06:59 06:59 06:59 Intake Total 2180 / 2180 3920 / 3920 1400 / 1400 Output Total 200 / 200 Balance 2180 / 2180 3720 / 3720 1400 / 1400 Weight 91.2 kg 93.6 kg 93.3 kg Narrative: GENERAL: Well-nourished, well-developed adult female in no obvious distress. SKIN: Warm and dry. HEAD: Atraumatic. Normocephalic. CARDIOVASCULAR: Regular rate and rhythm. RESPIRATORY: No accessory muscle use. Clear to auscultation. Breath sounds equal bilaterally. GASTROINTESTINAL: Abdomen soft, non-tender, non-distended. Positive bowel sounds. MUSCULOSKELETAL: Extremities without clubbing, cyanosis, or edema. No obvious deformities. Right hip dressing in place with no significant drainage. NEUROLOGICAL: Awake and alert. No obvious cranial nerve deficits. Motor grossly within normal limits. Normal speech. PSYCHIATRIC: Appropriate mood and affect; insight and judgment good. Results Labs CBC & Chem 7: 05/06/18 04:43 05/05/18 06:05 Procedures Procedures: s/p Right total hip arthroplasty via anterior approach 05/05/[address] Amrita moy. Assessment and Plan (1) Displaced fracture of right femoral neck: Code(s): S72.001A - Fracture of unspecified part of neck of right femur, initial encounter for closed fracture Status: Acute (2) Femoral neck fracture: Code(s): S72.009A - Fracture of unspecified part of neck of unspecified femur, initial encounter for closed fracture Status: Acute Plan Very pleasant 77 yo female s/p mechanical fall S/P mechanical fall with right femoral neck closed fracture s/p Right total hip arthroplasty via anterior approach 05/05/[address] Amrita moy. Nausea: zofran as need Dizziness: -Repeat CBC. -Noted to have T-100; some concern for infection -currently on Macrobid, continue. -Will order orthostatics if repeated. -Recent stress test normal per patient report. Chronic medical problems appears stable at this time Restart home meds as appropriate DVT ppx scd/teds. 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 DC : Sunday Progress Note: Quality VTE Deep Vein Thrombosis/Pulmonary Embolism Present on Admission: No _ (1) Femoral neck fracture Qualifiers: Encounter type: initial encounter Fracture healing: Fracture type: closed Laterality: right Open fracture type: Qualified Code(s): S72.001A - Fracture of unspecified part of neck of right femur, initial encounter for closed fracture
[2018-05-07] MEDS: Senna/Docusate Sodium 8.6/50 MG Tablet PO SCH ×2 (08:58→21:38)
[2018-05-07] MEDS: Calcium/Vitamin D 250/125 MG Tablet PO SCH ×3 (08:58→17:23)
[2018-05-07] MEDS: Celecoxib 200 MG Capsule PO SCH ×2 (08:59→21:39)
[2018-05-07] MEDS: Dorzolamide 2% Opth Drops 10 ML Bottle EACH EYE SCH ×3 (09:00→21:40)
[2018-05-07] MEDS: Metoprolol Tartrate 25 MG Tablet PO SCH ×2 (09:00→21:39)
[2018-05-07] MEDS: Nitrofurantoin Monohydrate-Macrocrystal 100 MG Capsule PO SCH ×2 (09:00→21:39)
[2018-05-07] MEDS: Sod Chloride 0.9% Inj 1,000 ML IV.CONT SCH (13:02)
[2018-05-07] MEDS: Latanoprost 0.005% Opth Drops 2.5 ML Bottle EACH EYE SCH (21:40)
[2018-05-08] MEDS: Sod Chloride 0.9% Inj 1,000 ML IV.CONT SCH ×2 (03:04→15:45)
[2018-05-08 05:38] LABS: Baso # (Auto) 0.1 th/mm3 (0.0-0.2); Baso % (Auto) 0.6 % (0.0-2.0); Eos # (Auto) 0.3 th/mm3 (0.0-0.4); Eos % (Auto) 3.5 % (0.0-4.0); Hematocrit 30.8 % (35.0-46.0); Hemoglobin 10.7 gm/dL (11.6-15.3); Lymph % (Auto) 11.6 % (9.0-44.0); Mean Corpuscular HGB Conc 34.7 % (32.0-36.0); Mean Corpuscular Hemoglobin 31.8 pg (27.0-34.0); Mean Corpuscular Volume 91.9 fL (80.0-100.0); Mean Platelet Volume 10.2 fL (7.0-11.0); Mono # (Auto) 0.9 th/mm3 (0.0-0.9); Mono % (Auto) 9.8 % (0.0-8.0); Neut # (Auto) 6.5 th/mm3 (1.8-7.7); Neut % (Auto) 74.5 % (16.0-70.0); Platelet Count 127 th/mm3 (150-450); Red Blood Count 3.36 mil/mm3 (4.00-5.30); Red Cell Distribution Width 13.2 % (11.6-17.2); White Blood Count 8.7 th/mm3 (4.0-11.0)
--- NOTE | 2018-05-08 06:48 | P.PNOP ---
Subjective Interval history: POD 3 s/p right JULES still repots issues with orthostatics and dizziness when standing. Physical Exam Vital signs: Vital Signs 05/07/18 08:21 05/07/18 12:45 05/07/18 15:45 Temperature 97.5 F L 98.8 F 100.0 F H Pulse Rate 85 78 87 Respiratory Rate 16 16 18 Blood Pressure 149/67 H 131/58 L 144/67 H Pulse Oximetry 96 94 L 95 05/07/18 18:07 05/07/18 20:15 05/08/18 00:15 Temperature 99.6 F 98.3 F 98.3 F Pulse Rate 84 81 Respiratory Rate 18 18 Blood Pressure 138/61 128/60 Pulse Oximetry 92 L 95 05/08/18 04:25 Temperature 98.6 F Pulse Rate 86 Respiratory Rate 17 Blood Pressure 128/60 Pulse Oximetry 92 L Intake & Output 05/07/18 05/07/18 05/08/18 06:59 18:59 06:59 Intake Total 1000 / 1000 960 / 960 720 / 720 Output Total 400 / 400 Balance 1000 / 1000 560 / 560 720 / 720 Weight 93.3 kg 93 kg Intake: IV 100 / 100 Ofirmev Inj 1,000 mg In 100 ml 100 / 100 @ 400 mls/hr IV.SIG Q12H ROSA Rx #:[id number] Oral 900 / 900 960 / 960 720 / 720 Output: Urine 400 / 400 Other: # Voids 4 5 3 Date of Last Bowel Movement 05/04/18 05/04/18 05/04/18 # Bowel Movements 0 0 Narrative: RLE: dressings clean and dry. itnact. NVI Results - Labs CBC & Chem 7: 05/08/18 04:55 05/05/18 06:05 Laboratory Results - last 24 hr 05/08/18 04:55 WBC 8.7 RBC 3.36 L Hgb 10.7 L Hct 30.8 L MCV 91.9 MCH 31.8 MCHC 34.7 RDW 13.2 Plt Count 127 L MPV 10.2 Neut % (Auto) 74.5 H Lymph % (Auto) 11.6 Lucas % (Auto) 9.8 H Eos % (Auto) 3.5 Baso % (Auto) 0.6 Neut # (Auto) 6.5 Lymph # (Auto) 1.0 Lucas # (Auto) 0.9 Eos # (Auto) 0.3 Baso # (Auto) 0.1 WBC Differential . Differential Comment Auto diff final - Procedures s/p Right total hip arthroplasty via anterior approach 05/05/[address] Amrita moy. Assessment and Plan - Assessment and Plan 1) Right Femoral Neck Fx s/p Anterior JULES - POD 3 -WBAT -maintain surgical dressing x 6 days then progress to daily with prim[place] -work with therapy today. if doing well by this afternoon and dizziness has subsided, ok for DC home. -if still having issue, ok to keep til tomorrow and plan for DC then -home therapy to be arranged by our office correctional case manager. no official C needed -patient unable to have any type of blood thinners due to hx of stroke. -f/u with Amrita or [facility] in 2 weeks [facility] Prescription Drug Monitoring Database has been queried and verified prior to prescribing the controlled substance. Acute pain exception. This patient has normal, predicted, physiological, and time limited response to an adverse mechanical stimulus associated with surgery, trauma, or acute illness as described in my notes. There is a lack of alternative treatment options other than to include the prescribed narcotic treatment for this condition.
[2018-05-08] MEDS: Senna/Docusate Sodium 8.6/50 MG Tablet PO SCH ×2 (08:22→20:33)
[2018-05-08] MEDS: Calcium/Vitamin D 250/125 MG Tablet PO SCH ×3 (08:22→17:35)
[2018-05-08] MEDS: Nitrofurantoin Monohydrate-Macrocrystal 100 MG Capsule PO SCH (08:25)
[2018-05-08] MEDS: Celecoxib 200 MG Capsule PO SCH ×2 (08:25→20:33)
[2018-05-08] MEDS: Metoprolol Tartrate 25 MG Tablet PO SCH ×2 (08:25→20:32)
[2018-05-08] MEDS: Dorzolamide 2% Opth Drops 10 ML Bottle EACH EYE SCH ×2 (08:26→20:36)
--- NOTE | 2018-05-08 12:05 | P.PNIM ---
Subjective Interval history: Patient is seen lying in bed. She is mildly upset that she once again became dizzy while trying to use the bedside commode. Describes the episode as more of a faint feeling rather than a room spinning feeling. She has had vertigo in the past and this was different. She is not having any chest pains, palpitations or shortness of breath. No associated nausea today other than immediately during the episode. Denies straining while on the bedside commode. Physical Exam Vital signs: Last Vital Signs Temp 98.2 F 05/08/18 08:00 Pulse 90 05/08/18 08:00 Resp 24 05/08/18 08:00 BP 171/73 H 05/08/18 08:00 Pulse Ox 94 L 05/08/18 08:00 Intake & Output 05/06/18 05/07/18 05/08/18 05/09/18 06:59 06:59 06:59 06:59 Intake Total 3920 / 3920 1400 / 1400 1680 / 1680 Output Total 200 / 200 400 / 400 Balance 3720 / 3720 1400 / 1400 1280 / 1280 Weight 93.6 kg 93.3 kg 93 kg Narrative: GENERAL: Well-nourished, well-developed adult female in no obvious distress. SKIN: Warm and dry. HEAD: Atraumatic. Normocephalic. CARDIOVASCULAR: Regular rate and rhythm. RESPIRATORY: No accessory muscle use. Clear to auscultation. Breath sounds equal bilaterally. GASTROINTESTINAL: Abdomen soft, non-tender, non-distended. Positive bowel sounds. MUSCULOSKELETAL: Extremities without clubbing, cyanosis, or edema. No obvious deformities. Right hip dressing in place with no significant drainage. NEUROLOGICAL: Awake and alert. No obvious cranial nerve deficits. Motor grossly within normal limits. Normal speech. PSYCHIATRIC: Appropriate mood and affect; insight and judgment good. Results Labs CBC & Chem 7: 05/08/18 04:55 05/05/18 06:05 Procedures Procedures: s/p Right total hip arthroplasty via anterior approach 05/05/[address] Amrita moy. Assessment and Plan (1) Displaced fracture of right femoral neck: Code(s): S72.001A - Fracture of unspecified part of neck of right femur, initial encounter for closed fracture Status: Acute (2) Femoral neck fracture: Code(s): S72.009A - Fracture of unspecified part of neck of unspecified femur, initial encounter for closed fracture Status: Acute Plan Very pleasant 77 yo female s/p mechanical fall S/P mechanical fall with right femoral neck closed fracture s/p Right total hip arthroplasty via anterior approach 05/05/[address] Amrita moy. Nausea: -zofran as need Dizziness: -Repeated CBC -normal white count; stable hemoglobin -Noted to have T-100 on 05/07; some concern for infection -currently on Macrobid , continue. Now afebrile -Orthostatics ordered; keep teds on; encourage PO fluids -Recent stress test normal per patient report. -Possibly related to pain medications, try to wean Chronic medical problems appears stable at this time Restart home meds as appropriate DVT ppx scd/teds. 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 Refuses ASA ordered by Arlene Mckinnon. DC : Likely to rehab as soon as stable. Progress Note: Quality VTE Deep Vein Thrombosis/Pulmonary Embolism Present on Admission: No _ (1) Femoral neck fracture Qualifiers: Encounter type: initial encounter Fracture healing: Fracture type: closed Laterality: right Open fracture type: Qualified Code(s): S72.001A - Fracture of unspecified part of neck of right femur, initial encounter for closed fracture
[2018-05-08] MEDS: Latanoprost 0.005% Opth Drops 2.5 ML Bottle EACH EYE SCH (20:36)
--- NOTE | 2018-05-09 06:43 | P.PNOP ---
Subjective Interval history: POd 4 s/p right JULES continues to struggle with orthostatics, although better yesterday Physical Exam Vital signs: Vital Signs 05/08/18 08:00 05/08/18 12:00 05/08/18 16:00 Temperature 98.2 F 98.6 F 99.9 F H Pulse Rate 90 84 87 Respiratory Rate 24 20 20 Blood Pressure 171/73 H 124/62 146/62 H Pulse Oximetry 94 L 97 94 L 05/08/18 20:20 05/09/18 00:46 05/09/18 04:52 Temperature 99.2 F 98 F 97.6 F Pulse Rate 86 60 72 Respiratory Rate 18 18 18 Blood Pressure 142/62 H 125/63 121/67 Pulse Oximetry 97 95 94 L Intake & Output 05/08/18 05/08/18 05/09/18 06:59 18:59 06:59 Intake Total 720 / 720 120 / 120 Balance 720 / 720 120 / 120 Weight 93 kg 93.8 kg Intake: Oral 720 / 720 120 / 120 Other: # Voids 3 3 Date of Last Bowel Movement 05/04/18 05/05/18 05/08/18 # Bowel Movements 0 2 Narrative: RLE: dressing clean and dry. itnact. nvi Results - Labs CBC & Chem 7: 05/08/18 04:55 05/05/18 06:05 - Procedures s/p Right total hip arthroplasty via anterior approach 05/05/[address] Crowe ortho. Assessment and Plan - Assessment and Plan 1) Right Femoral Neck Fx s/p Anterior JULES - POD 4 -WBAT -maintain surgical dressing x 6 days then progress to daily with prim[place] -work with therapy today. if doing well by this afternoon and dizziness has subsided, ok for DC home. -if still having issue with orthostatics, may be candidate for Rehab placement. -CM to look into options -home therapy to be arranged by our office block and case maker. no official HHC needed -patient unable to have any type of blood thinners due to hx of stroke. -f/u with Amrita or [facility] in 2 weeks [facility] Prescription Drug Monitoring Database has been queried and verified prior to prescribing the controlled substance. Acute pain exception. This patient has normal, predicted, physiological, and time limited response to an adverse mechanical stimulus associated with surgery, trauma, or acute illness as described in my notes. There is a lack of alternative treatment options other than to include the prescribed narcotic treatment for this condition.
[2018-05-09] MEDS: Senna/Docusate Sodium 8.6/50 MG Tablet PO SCH (08:39)
[2018-05-09] MEDS: Metoprolol Tartrate 25 MG Tablet PO SCH (08:39)
[2018-05-09] MEDS: Calcium/Vitamin D 250/125 MG Tablet PO SCH (08:39)
[2018-05-09] MEDS: Celecoxib 200 MG Capsule PO SCH (08:39)
[2018-05-09] MEDS: Dorzolamide 2% Opth Drops 10 ML Bottle EACH EYE SCH (08:42)
[2018-05-09 09:18] VITALS: RESP 17
[2018-05-09 12:22] VITALS: BP 127/69; PULSE 80; TEMP 98; O2SAT 97
--- NOTE | 2018-05-09 12:45 | P.PNIM ---
Subjective Interval history: Patient is seen sitting up in chair. is at bedside. Patient tells me that she has not had any episodes of dizziness today. She has been up ambulating in her room and going to the bathroom without difficulty. Would very much like to go home today. Pain has been well controlled with tramadol. No chest pain or shortness of breath. No nausea vomiting or diarrhea. No fever or chills. Physical Exam Vital signs: Last Vital Signs Temp 98 F 05/09/18 12:00 Pulse 80 05/09/18 12:00 Resp 17 05/09/18 12:00 BP 127/69 05/09/18 12:00 Pulse Ox 97 05/09/18 12:00 Intake & Output 05/07/18 05/08/18 05/09/18 05/10/18 06:59 06:59 06:59 06:59 Intake Total 1400 / 1400 1680 / 1680 120 / 120 Output Total 400 / 400 Balance 1400 / 1400 1280 / 1280 120 / 120 Weight 93.3 kg 93 kg 93.8 kg Narrative: GENERAL: Well-nourished, well-developed adult female in no obvious distress. SKIN: Warm and dry. HEAD: Atraumatic. Normocephalic. CARDIOVASCULAR: Regular rate and rhythm. RESPIRATORY: No accessory muscle use. Clear to auscultation. Breath sounds equal bilaterally. GASTROINTESTINAL: Abdomen soft, non-tender, non-distended. Positive bowel sounds. MUSCULOSKELETAL: Extremities without clubbing, cyanosis, or edema. No obvious deformities. Right hip dressing in place with no significant drainage. NEUROLOGICAL: Awake and alert. No obvious cranial nerve deficits. Motor grossly within normal limits. Normal speech. PSYCHIATRIC: Appropriate mood and affect; insight and judgment good. Results Labs CBC & Chem 7: 05/08/18 04:55 05/05/18 06:05 Procedures Procedures: s/p Right total hip arthroplasty via anterior approach 05/05/[address] Amrita moy. Assessment and Plan (1) Displaced fracture of right femoral neck: Code(s): S72.001A - Fracture of unspecified part of neck of right femur, initial encounter for closed fracture Status: Acute (2) Femoral neck fracture: Code(s): S72.009A - Fracture of unspecified part of neck of unspecified femur, initial encounter for closed fracture Status: Acute Plan Very pleasant 77 yo female s/p mechanical fall S/P mechanical fall with right femoral neck closed fracture s/p Right total hip arthroplasty via anterior approach 05/05/[address] Amrita moy. Nausea: Resolved -zofran as need Dizziness: Resolved -Repeated CBC -normal white count; stable hemoglobin -Noted to have T-100 on 05/07; some concern for infection -currently on Macrobid , continue. Now afebrile -Orthostatics ordered; keep teds on; encourage PO fluids -Recent stress test normal per patient report. -Possibly related to pain medications, try to wean Chronic medical problems appears stable at this time Restart home meds as appropriate DVT ppx scd/teds. 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 Refuses ASA ordered by Arlene Mckinnon. DC : Home with home health today Progress Note: Quality VTE Deep Vein Thrombosis/Pulmonary Embolism Present on Admission: No _ (1) Femoral neck fracture Qualifiers: Encounter type: initial encounter Fracture healing: Fracture type: closed Laterality: right Open fracture type: Qualified Code(s): S72.001A - Fracture of unspecified part of neck of right femur, initial encounter for closed fracture
--- NOTE | 2018-05-09 12:53 | P.DS ---
DS: Providers Date of admission: 05/04/18 10:48 Primary care physician: Hillary Lu MD Consults: 05/04/18 10:39 Consult to Orthopedic Surgery Routine Consulting Provider: Isacc Hightower Flatbed Owner Operator:: Isacc Hightower Reason for Consultation: femoral neck fracture, discussed with physician culinary assistant Mitchel Notified:: Service Spoke with:: saw Date Notified:: 05/04/18 Time Notified:: 10:53 Ordering Provider: PARVIN 05/08/18 15:08 HUB Only Consult Order Routine [facility] Brief History from admission: The patient is a very pleasant 77-year-old female with carmita h/o colon/ breast CA, who presents to the emergency department having had a mechanical fall when she was at a store. She tripped and landed on her right hip. She reports moderate severity pain in the right hip, constant, with no associated numbness or weakness. She did not hit her head. She is not on any blood thinners. 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 She also has multiple meds allergies. Says however she was deemed healthy by all her doctors. Says she had a recent cardiac stress test and was normal. No other complaints. Deneis cp, sob, n/v/d/c. No headache change in vision, focal deficit. No urinary complaints. No n/v/d/c. DS: Diagnosis Discharge Diagnosis (1) Displaced fracture of right femoral neck: Status: Acute (2) Femoral neck fracture: Status: Acute DS: Summary S/P mechanical fall with right femoral neck closed fracture s/p Right total hip arthroplasty via anterior approach 05/05/[address] Amrita moy. -Managed by ortho Nausea: Resolved Dizziness: Resolved -Repeated CBC -normal white count; stable hemoglobin -Noted to have T-100 on 05/07; Now afebrile -Orthostatics ordered; keep teds on; encourage PO fluids -Recent stress test normal per patient report. -Possibly related to pain medications, limit as much as possible Chronic medical problems were stable during hospitalization. Home meds given as appropriate Time Spent with Patient Total time spent providing and/or coordinating discharge services:<30 min Quality: VTE Deep Vein Thrombosis/Pulmonary Embolism Present on Admission: No Exam Narrative Exam Narrative: GENERAL: Well-nourished, well-developed adult female in no obvious distress. SKIN: Warm and dry. HEAD: Atraumatic. Normocephalic. CARDIOVASCULAR: Regular rate and rhythm. RESPIRATORY: No accessory muscle use. Clear to auscultation. Breath sounds equal bilaterally. GASTROINTESTINAL: Abdomen soft, non-tender, non-distended. Positive bowel sounds. MUSCULOSKELETAL: Extremities without clubbing, cyanosis, or edema. No obvious deformities. Right hip dressing in place with no significant drainage. NEUROLOGICAL: Awake and alert. No obvious cranial nerve deficits. Motor grossly within normal limits. Normal speech. PSYCHIATRIC: Appropriate mood and affect; insight and judgment good. Results Procedures completed during hospitalization: s/p Right total hip arthroplasty via anterior approach 05/05/[address] Amrita moy. Impressions ITS Impressions Pelvis X-Ray 05/04/18 09:01 CONCLUSION: Nondisplaced fracture of the right femoral neck. Hip CT 05/04/18 10:34 CONCLUSION: 1. Comminuted mildly displaced fracture of the right femoral neck. Hip X-Ray 05/05/18 09:51 CONCLUSION: Status post total right hip arthroplasty with good anatomic alignment of the prosthesis. Discharge Plan Discharge Disposition Patient Disposition: Discharge Home Discharge Condition Condition: Stable Discharge Order Discharge Orders: Discharge Order (Routine); Ordered 05/07/18 Ordered By: Kiara Sahu Orthopedic Clear for Discharge (Routine); Ordered 05/07/18 Ordered By: Chace Gauthier ED Use Only Admit Order (Routine); Ordered 05/04/18 Ordered By: Nita Sin Discharge Details Anticipated Discharge Date: 05/09/18 Physicians Team ED Provider: Nita Sin Primary Care Provider: Hillary Lu Attending Provider: Kiara Sahu Other Providers: Isacc Hightower ; [facility] Rxs /Orders / Referrals /Forms Prescriptions: New rivaroxaban [Xarelto] 10 mg Tablet 10 mg PO DAILY Qty: 14 RF: 0 cholecalciferol (vitamin D3) 5,000 unit Capsule 5,000 unit PO DAILY Qty: 60 RF: 0 tramadol [Ultram] 50 mg Tablet 50 mg PO Q8H PRN (Reason: Pain Scale 1 To 2) Qty: 9 RF: 0 Continue latanoprost 0.005 % Drops 1 drp OPHTHALMIC (EYE) QPM RF: 0 anastrozole 1 mg Tablet 1 mg PO DAILY RF: 0 meclizine 25 mg Tablet 25 mg PO DAILY PRN (Reason: Vertigo) RF: 0 lansoprazole 30 mg Capsule,Delayed Release(Dr/Ec) 30 mg PO HS RF: 0 lovastatin 20 mg Tablet 20 mg PO DAILY RF: 0 fluticasone 50 mcg/actuation [place],Suspension 1 spray INTRANASAL DAILY RF: 0 dorzolamide 2 % Drops 1 drp OPHTHALMIC (EYE) TID RF: 0 nitrofurantoin monohyd/m-cryst 100 mg Capsule 100 mg PO BID RF: 0 Bifidobacterium infantis [Align] 4 mg Capsule 4 mg PO DAILY RF: 0 methen-mAbimaelblue-s.wjeo-hmlyl-klw [Uribel] 118-10-40.8-36 mg Capsule 1 tab PO QID RF: 0 Referrals: Isacc Hightower MD [Physician] - See Instructions (2 weeks) Hillary Lu MD [Primary Care Provider] - See Instructions ( Please call the physician's office to book the appointment to be seen within [2-3 days ].) Discharge Instructions Patient Printed Instructions: Hydrocodone/Acetaminophen (By mouth), Rivaroxaban (By mouth), How to Use an Incentive Spirometer (ED), How to Choose and Use a Walker (GEN), Narcotic Safety (DC), Bandage Change (DC), IRENE Hose (DC) , Total Hip Replacement (DC) Post Discharge Care Plan Care Plan Goals: Discharge Care Plan Goals for Total Hip Replacement You had a hip replacement surgery. This means your natural hip was replaced with an artificial joint (prosthesis). You may be recovering at home or in a rehabilitation facility. Either way, you must take care of your new hip. Here are some goals to help you heal well. Directions to Meet your Goals: 1. Activity & Exercises: * Take pain medicine as directed by your doctor. * Dont drive until your doctor says its OK. And never drive while taking opioid pain medicine. * Wear the support stockings you were given in the hospital as directed by your surgeon. * Dont sit for more than 30 to 45 minutes at one time. * Dont lean forward while sitting. * Dont cross your legs. * Keep your feet flat on the floor. Dont turn your foot or leg inward. This stresses your hip joint. * Use an elevated toilet seat for 6 weeks after surgery. * Nap if you are tired, but dont stay in bed all day. * Sit on a firm cushion when you ride in a car and avoid sitting too low. Try not to bend your hip too much when getting in and out of the car. 2. Prevent Falls/Injury: * Follow your doctors orders regarding how much weight to put on the affected leg. * Dont bend at the hip when you bend over. Don't bend at the waist to put on socks and shoes. And avoid picking up items from the floor. * Use a cane, crutches, a walker, or handrails until your balance, flexibility, and strength improve. And remember to ask for help from others when you need it. * Free up your hands so that you can use them to keep balance. Use a joel pack , apron, or pockets to carry things. * Arrange your household to keep the items you need handy. Keep everything else out of the way. * Remove items that may cause you to fall, such as throw rugs and electrical cords. * Use nonslip bath mats, grab bars, an elevated toilet seat, and a shower chair in your bathroom * Sit on a shower stool or chair when you shower to keep from falling. 3. Precautions: * Prevent infection. Any infection will need to be treated immediately. Call your doctor right away if you think you might have an infection. * Tell your dentist that you have an artificial joint and take antibiotics as prescribed before any dental work. * Tell all your healthcare providers about your artificial joint before any medical procedure. * Maintain a healthy weight. Get help to lose any extra pounds. Added body weight puts stress on the joints. 4. Incision Care: * Prevent infection by washing your hands often. If an infection occurs, it will need to be treated right away. * Call your doctor right away if you think you may have an infection. Symptoms include a fever or an incision that leaks white, green, or yellow fluid. * Don't soak your incision in water until your doctor says its OK. This means no hot tubs, bathtubs, or swimming pools. * Follow your doctor's instructions for changing the dressing. * Dont rub the incision, or apply creams or lotions to it. * If you notice any redness or drainage around the bandage site, contact your surgeon's office immediately. 5. Follow-Up: Do Not miss your follow-up appointment. Keep up with all your appointments and yearly check ups When to call your doctor: Call your doctor right away if you have: Hip pain gets worse Pain or swelling in your calf or leg not related to your incision Tenderness or redness in your calf Fever of 100.4F (38C) or higher, or as directed by your healthcare provider Shaking chills Swelling or redness at the incision site gets worse Fluid draining from the incision Call 911: Call 911 right away if you have: Chest pain Shortness of breath Any pain or tenderness in your calf Status ED Status: Left Department
== END 2018-05-09 15:13 | disposition home or self-care (01) ==
LOC: NEPE 08:35 → NEDA 10:48 → N06 15:55
PROVIDERS: ADMIT Hospitalist; ATTEND Hospitalist